=== PATIENT | male | born 1940 | race Caucasian/White ===

== ENCOUNTER → 2016-09-02 | Outpatient (CLI) | payer MEDICARE, OTHER ==
[~2016-09-02] MED LIST: ACTOS15 MG PO; ASPI-84 PO; FLC100T1 PO; FLC1T PO; GABA600T2 PO; GEMF600T3 PO; HYDR-3583 PO; HYDR1TAB PO; LISI20TA2 PO; LOVA20TA2 PO; MTF500T PO; MULT-298 PO; NIA500ERT PO; NYST1000 PO; OMG1KC PO; VITA1CAP59 PO
--- OUTSIDE RECORDS SUMMARY | 2016-09-02 08:00 | XMS REPORT | Continuity of Care Document ---
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 09/18/2010 Ot 112.0 THRUSH 09/18/2010 Ot 250.60 DIAB W NEURO MANIFEST, TYPE II OR UNSPEC 09/18/2010 Ot 272.4 HYPERLIPIDEMIA NEC/NOS 09/18/2010 Ot 276.8 HYPOPOTASSEMIA 09/18/2010 Ot 286.6 DEFIBRINATION SYNDROME 09/18/2010 Ot 357.2 NEUROPATHY IN DIABETES 09/18/2010 Ot 401.9 HYPERTENSION NOS 09/18/2010 Ot 571.5 CIRRHOSIS OF LIVER NOS 09/18/2010 Ot 574.00 CHOLELITH W AC CHOLECYST 09/18/2010 Ot 577.0 ACUTE PANCREATITIS 09/18/2010 Ot 715.90 OSTEOARTHROS NOS-UNSPEC 09/18/2010 Ot 995.92 SEVERE SEPSIS 08/26/2011 Ot 735.4 OTHER HAMMER TOE 05/22/2012 Ot 706.2 SEBACEOUS CYST 05/22/2012 Ot V58.69 OTH MED,LT,CURRENT USE 01/26/2013 JIL TITUS Ot 287.5 THROMBOCYTOPENIA NOS 01/26/2013 JIL TITUS Ot V58.69 OTH MED,LT,CURRENT USE 02/22/2016 Ot 735.4 OTHER HAMMER TOE 02/22/2016 Ot V72.84 EXAM PRE-OPERATIVE NOS 02/22/2016 Ot V74.8 SCREEN-BACTERIAL DIS NEC 02/22/2016 Ot 287.5 THROMBOCYTOPENIA NOS 02/22/2016 Ot 706.2 SEBACEOUS CYST 02/22/2016 Ot V72.81 [id number] CARDIOVASCULAR 02/22/2016 Ot 287.5 THROMBOCYTOPENIA NOS 02/22/2016 Ot 288.51 LYMPHOCYTOPENIA 02/22/2016 Ot 789.2 SPLENOMEGALY 02/22/2016 Ot V58.69 OTH MED,LT,CURRENT USE 02/22/2016 Ot 287.5 THROMBOCYTOPENIA NOS 02/22/2016 FAJARDO MARGO Nika MEDICINE TEACHER Ot 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 02/22/2016 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 MEDICINE TEACHER Ot 287.5 THROMBOCYTOPENIA NOS 02/22/2016 FAJARDO MARGO Maher MEDICINE TEACHER Ot 288.51 LYMPHOCYTOPENIA 02/22/2016 FAJARDO MARGO Maher MEDICINE TEACHER Ot 789.2 SPLENOMEGALY 02/22/2016 FAJARDO MARGO Maher MEDICINE TEACHER Ot V58.69 OTH MED,LT,CURRENT USE 02/22/2016 Ot 287.5 THROMBOCYTOPENIA NOS 02/22/2016 Ot V58.69 OTH MED,LT,CURRENT USE 02/22/2016 ALEX CHAO MD Ot 722.52 LUMB/LUMBOSAC DISC DEGEN 2016 CHAGO ARANGO DO S Ot R01.1 CARDIAC MURMUR, UNSPECIFIED 03/15/2016 CHAGO ARANGO DO S Ot R01.1 CARDIAC MURMUR, UNSPECIFIED 03/22/2016 CHAGO ARANGO DO S Ot R01.1 CARDIAC MURMUR, UNSPECIFIED Procedures Code Description Performed By Performed On 51.85 09/10/2010 50.11 09/14/2010 51.23 09/14/2010 Results Encounters ACCT No. Visit Date/Time Discharge Status Pt. Type Provider Facility Loc./Unit Complaint [id number] 11/11/2013 07:55:00 2013 23:59:59 CLS Outpatient ALEX CHAO MD [facility] RAD LUMBAR STENOSIS [id number] 01/28/2013 08:43:00 2012 23:59:59 CLS Outpatient 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P [facility] ONC [id number] 10/28/2012 10:54:00 2012 00:01:00 DIS Outpatient JIL TITUS [facility] ONC [id number] 02/22/2016 08:53:00 ACT Outpatient CHAGO ARANGO DO [facility] CARD CARDIAC MURMUR [id number] 01/27/2013 00:00:00 Document Registration [id number] 10/14/2012 08:40:00 Document Registration [id number] 09/09/2012 08:41:00 Document Registration [id number] 06/01/2012 14:00:00 Document Registration [id number] 05/22/2012 12:13:00 Document Registration [id number] 05/19/2012 13:58:00 Document Registration [id number] 08/26/2011 05:33:00 Document Registration [id number] 08/19/2011 08:09:00 Document Registration [id number] 09/10/2010 00:08:00 Document Registration
--- NOTE | 2016-09-04 10:01 | ECHOCARDIOGRAPHY REPORT ---
PROCEDURE PHYSICIAN: DELFINO NOVA DATE OF PROCEDURE: 09/02/2016 TWO DIMENSIONAL ECHOCARDIOGRAM REPORT PRIMARY PHYSICIAN: Dr. Major OTHER PHYSICIAN: Dr. Nova REFERRING PHYSICIAN: ORDERING PHYSICIAN: Dr. Major INDICATION FOR THE PROCEDURE: Cardiac murmur. MEASUREMENTS DERIVED VALUES LV DIAMETER (LAX) NORMALS NORMALS Diastolic 5.3 (3.6-5.2) Eject. Fract. (60%+/-6%) Systolic (2.3-3.9) Diastolic Vol. % Shortening (0.22-0.42) Systolic Vol. Aortic Root 3.6 IVS THICKNESS Diastolic 0.7 (0.6-1.1) LVPW THICKNESS Diastolic 0.9 (0.6-1.1) LA DIAMETER Systolic 3.5 (2.1-3.7) DESCRIPTION: Two-dimensional echocardiography shows normal global left ventricular systolic function with normal regional wall motion. Aortic, mitral and tricuspid valve leaflets show good leaflet excursion. There is moderate to moderately severe mitral annular calcification. Mitral valve leaflets show good leaflet excursion. There is moderate aortic valve sclerosis. Aortic valve leaflets exhibit fair leaflet excursion. There is no significant pericardial effusion. There does not appear to be significant valvular regurgitation on this study. Pulmonary artery systolic pressure is estimated to be within normal limits. There is no Doppler evidence of significant valvular stenosis. Mitral inflow is consistent with a grade 1 diastolic dysfunction of the left ventricle. Peak pressure gradient across the aortic valve is approximately 12 mmHg with a mean gradient of approximately 7 mmHg. There is no evidence of significant intracardiac shunt on this transthoracic echocardiographic study. Inferior vena cava appears to be of normal size and appears to collapse normally with inspiration. CONCLUSIONS: 1. Normal global left ventricular systolic function with an ejection fraction of approximately 65%. 2. Mild diastolic dysfunction of the left ventricle. 3. Mitral annular calcification and aortic valve sclerosis, moderate, without evidence of significant valvular stenosis. 4. No evidence of significant valvular regurgitation. 5. Pulmonary artery systolic pressure is estimated to be within normal limits. Job ID: [id number] Dictated Date: 09/03/2016 16:39:42 Employer Relations Representative Date: 09/04/2016 09:55:15 / [email or web address]
== END ==
LOC: CARD 07:56
PROVIDERS: ATTEND Family Medicine
DX: R01.1 Cardiac murmur, unspecified (principal)
CPT/HCPCS: 93306

== ENCOUNTER 2018-08-12 23:52 | Observation (INO) | payer MEDICARE, OTHER ==
[~2018-08-12] VITALS: Ht 175.3 cm; Wt 90.8 kg
--- NOTE | 2018-08-12 23:53 | NUR ---
PT TO ED RM 7 PER EMS S/P NEAR FALL AT HOME. PT REPORTS FEELING WEAK WHILE WALKING ET. LOWERING SELF TO GROUND. PT S/P LEFT HIP REPLACEMENT APPROX. 2WEEKS AGO. PT WITH LEFT LEG SHORTENING. PT REPORTS INTERMITTANT PAIN 5/10 DECLINES PAIN MEDICATION AT THIS TIME. D50 GIVEN BY EMS ADJUNCT FACULTY MATHEMATICS DEPARTMENT FOR FINGER STICK GLUCOSE OF 47, IMPROVING TO 214.
--- OUTSIDE RECORDS SUMMARY | 2018-08-12 23:57 | XMS REPORT | Continuity of Care Document ---
Author Author [facility] Organization [facility] Address Unknown Phone Unavailable Care Team Providers Care School Nurse Name Role Phone CHAGO ARANGO DO PP Insurance Providers Payer Name Policy Number Subscriber Name Relationship s Medicare [id number] Delta Sheikh Self / Same As Patient [facility] [place] [id number] Delta Sheikh Self / Same As Patient Advance Directives Directive Response Recorded Date Advance Directives N 05/22/12 1:00pm Health Care Power of Refractory Products Supervisor N 05/22/12 1:00pm Organ Donor N 05/22/12 1:00pm Problems No Known Problems or Medical conditions. Family History History Response Recorded Date/Time Hx Family Cancer N 09/10/10 12:55am Hx Family Cardiac Disorders Y MOTHER AND FATHER 09/10/10 12:55am Hx Family Stroke Y FATHER 09/10/10 12: 55am Hx Family Hypertension Y 09/10/10 12: 55am Hx Family Myocardial Infarction Y 12:55am Allergies, Adverse Reactions, Alerts Allergen Type Severity Reaction Last Updated No Known Drug Allergies 09/09/10 Medications Medication Dose Units Route Sig Qty Days Acetaminophen/Hydrocodone Bitart (Vicodin 5-500 Tablet) 1 - 2 Each PO Q4HR PRN Niacin (Niaspan) 500 Mg PO DAILY Gemfibrozil 1 Each PO DAILY Aspirin (Macie) 81 Mg PO DAILY Multivitamins/Iron/Folic Acid (Multi Complete-Iron Tablet) 1 Tab PO DAILY Fish Oil 1000 Mg PO DAILY Vitamin B Complex (B Complex) 1 Cap PO DAILY Folic Acid (Folic Acid Tab) 1 Mg PO DAILY Metformin HCl (Metformin 500 Mg) 1000 Mg PO BID Lovastatin 20 Mg PO DAILY Gabapentin (Neurontin) 600 Mg PO DAILY Lisinopril 20 Mg PO DAILY Pioglitazone HCl (Actos) 15 Mg PO DAILY Nystatin (Nystatin Oral Suspension) 0 PO Q6H 7 Fluconazole (Diflucan 100 Mg) 1 Each PO DAILY 7 Acetaminophen/Hydrocodone Bitart (Lortab 5 Mg) 1 - 2 Ea PO Q4HR PRN Response Recorded Date/Time Status not known Unknown Results Test Date Result Interp. Ref. Range Activated Partial Thromboplast Time September 11, 2010 9:04am 39 SEC H 24-35 Alanine Aminotransferase (ALT/SGPT) September 18, 2010 7:18am 47 U/L N 30-65 Albumin September 18, 2010 7:18am 2.7 G/DL L 3.4-5.0 Alkaline Phosphatase September 18, 2010 7:18am 205 U/L H 50-136 Amylase Level September 17, 2010 6:00am 50 U /L N 25-115 Anisocytosis September 10, 2010 9:47am SLIGHT - Anti-Nuclear Antibody Screen September 11, 2010 5:40am <1:80 - Aspartate Amino Transf (AST/SGOT) September 18, 2010 7:18am 54 U/L H 15-37 BUN/Creatinine Ratio September 18, 2010 7:18am 17 - Band Neutrophils September 10, 2010 9:47am 17 % - Basophils # (Auto) September 10, 2010 9:47am 0.0 10^3/uL N 0.0-0.1 Basophils % (Manual) September 10, 2010 9:47am 0 % - Basophils (%) (Auto) September 10, 2010 9:47am 0 % N 0-10 Blood Urea Nitrogen September 18, 2010 7:18am 17 MG/DL N 7-18 Calcium Level September 18, 2010 7:18am 8.3 MG/DL L 8.5-10.1 Carbon Dioxide Level September 18, 2010 7:18am 24 MMOL/L N 21-32 Chloride Level September 18, 2010 7:18am 104 MMOL/L N 101-110 Creatinine September 18, 2010 7:18am 1.0 MG/ DL N 0.6-1.3 Cytomegalovirus IgG Antibody September 11, 2010 5:40am 8.80 H INDEX - Cytomegalovirus IgM Antibody September 11, 2010 5:40am 0.39 INDEX - D-Dimer September 11, 2010 9:04am 3.86 UG/ ML H 0.00-0.49 Dohle Bodies September 10, 2010 9:47am SLIGHT - Eosinophils # (Auto) September 10, 2010 9:47am 0.0 10^3/uL N 0.0-0.3 Eosinophils % (Manual) September 10, 2010 9:47am 0 % - Eosinophils (%) (Auto) September 10, 2010 9:47am 0 % N 0-10 Ariana-Colvin Virus Capsid Ag IgG Ab September 11, 2010 5:40am 4.05 H - Ariana-Colvin Virus Capsid Ag IgM Ab September 11, 2010 5:40am 0.16 - Ariana-Colvin Virus Early Antigen Ab September 11, 2010 5:40am 0.54 - Ariana-Colvni Virus Nuclear Ag Ab September 11, 2010 5:40am 3.93 H - Fibrinogen September 11, 2010 9:04am 612 MG/ DL H 221-496 Glucose Level September 18, 2010 7:18am 150 MG/DL H 70-126 Hematocrit September 18, 2010 7:58am 37 % L 40-54 Hemoglobin September 18, 2010 7:58am 12.5 G/ DL L 13.3-17.7 Hepatitis A IgM Antibody September 14, 2010 7:45am NR - Hepatitis B Core IgM Antibody September 14, 2010 7:45am EQUIVOCAL H - Hepatitis B Surface Antigen September 14, 2010 7:45am NR - Hepatitis C Antibody September 14, 2010 7:45am NR - Lipase September 18, 2010 7:18am 594 U/L H 73-393 Lymphocytes # (Auto) September 10, 2010 9:47am 0.3 X 10^3 L 1.0-4.0 Lymphocytes % (Manual) September 10, 2010 9:47am 5 % - Lymphocytes (%) (Auto) September 10, 2010 9:47am 2 % L 12-44 Macrocytosis September 10, 2010 9:47am SLIGHT - Magnesium Level September 17, 2010 6:00am 2.1 MG/DL N 1.8-2.4 Mean Corpuscular Hemoglobin September 18, 2010 7:58am 32 PG N 25-34 Mean Corpuscular Hemoglobin Concent September 18, 2010 7:58am 34 G/DL N 32-36 Mean Corpuscular Volume September 18, 2010 7:58am 94 FL N 80-99 Mean Platelet Volume September 18, 2010 7:58am 10.5 FL H 7.4-10.4 Metamyelocytes % September 10, 2010 9:47am 1 % - Monocytes # (Auto) September 10, 2010 9:47am 0.6 X 10^3 N 0.0-1.0 Monocytes % (Manual) September 10, 2010 9:47am 3 % - Monocytes (%) (Auto) September 10, 2010 9:47am 5 % N 0-12 Neutrophils # (Auto) September 10, 2010 9:47am 11.1 X 10^3 H 1.8-7.8 Neutrophils % (Manual) September 10, 2010 9:47am 73 % - Neutrophils (%) (Auto) September 10, 2010 9:47am 92 % H 42-75 Phosphorus Level September 12, 2010 5:40am 2.0 MG/DL L 2.5-4.9 Platelet Count September 18, 2010 7:58am 202 10^3/uL N 130-400 Poikilocytosis September 09, 2010 9:00pm SLIGHT - Polychromasia September 09, 2010 9:00pm SLIGHT - Potassium Level September 18, 2010 7:18am 4.3 MMOL/L N 3.6-5.0 Prothromb Time International Ratio September 11, 2010 9:04am 1.3 N 0.8-1.4 Prothrombin Time September 11, 2010 9:04am 16.1 SEC H 12.2-14.7 Reactive Lymphocytes September 10, 2010 9:47am 1 % - Red Blood Count September 18, 2010 7:58am 3.96 10^6/uL L 4.35-5.85 Red Cell Distribution Width September 18, 2010 7:58am 13.6 % N 10.0-14.5 Sodium Level September 18, 2010 7:18am 137 MMOL/L N 135-145 Total Bilirubin September 18, 2010 7:18am 0.8 MG/DL N 0.0-1.0 Total Protein September 18, 2010 7:18am 5.8 G/DL L 6.4-8.2 Toxic Granulation September 10, 2010 9:47am 1+ - Urine Bacteria September 09, 2010 9:15pm NEGATIVE - Urine Bilirubin September 09, 2010 9:15pm NEGATIVE - Urine Casts September 09, 2010 9:15pm NONE - Urine Clarity September 09, 2010 9:15pm CLEAR - Urine Color September 09, 2010 9:15pm YELLOW - Urine Crystals September 09, 2010 9:15pm NONE - Urine Culture Indicated September 09, 2010 9:15pm NO - Urine Glucose (UA) September 09, 2010 9:15pm TRACE H - Urine Ketones September 09, 2010 9:15pm NEGATIVE - Urine Leukocyte Esterase September 09, 2010 9:15pm NEGATIVE - Urine Mucus September 09, 2010 9:15pm NEGATIVE - Urine Nitrite September 09, 2010 9:15pm NEGATIVE - Urine Protein September 09, 2010 9:15pm NEGATIVE - Urine RBC September 09, 2010 9:15pm NONE /HPF - Urine Specific Baskin September 09, 2010 9:15pm 1.015 L - Urine Squamous Epithelial Cells September 09, 2010 9:15pm RARE - Urine Urobilinogen September 09, 2010 9:15pm 8 MG/DL H - Urine WBC September 09, 2010 9:15pm RARE /HPF - Urine pH September 09, 2010 9:15pm 8.0 - Vancomycin Level Trough September 15, 2010 7:55pm 3 UG/ML L 15-20 White Blood Count September 18, 2010 7:58am 5.9 10^3/uL N 4.3-11.0 Glucometer May 22, 2012 3:42pm 129 MG/DL H 70-110 Estimat Glomerular Filtration Rate September 09, 2010 9:00pm 60 - Urine RBC (Auto) September 09, 2010 9:15pm NEGATIVE - Procedures Procedure Code Date LESION REMOVE COLONOSCOPY 15025 06/29/07 LAPAROSCOPIC CHOLECYSTECTOMY 51.23 PERCUTAN NEEDLE BX OF LIVER 50.11 ENDOSCOPIC SPHINCTEROTOMY AND PAPILLOTOMY 51.85 09/10/10 REPAIR OF HAMMERTOE 29431 08/26/11 INCISION OF METATARSAL 73849 08/26/11 EXC TR-EXT B9+FELIX >4.0 CM [address] Blood Culture 09/09/10 MRSA Screen 05/22/12 Gram Stain 09/14/10 Encounters Encounter Location Date/Time Discharged Inpatient [facility] 12:08am
[2018-08-12] MEDS ORDERED: NS IV 1000 ML 1,000 ML IV SCH (23:58)
--- OUTSIDE RECORDS SUMMARY | 2018-08-12 23:58 | XMS REPORT | Continuity of Care Document ---
Author Author [facility] Organization [facility] Address Unknown Phone Unavailable Allergies Active Description Code Type Severity Reaction Onset Reported/Identified Relationship to Patient Clinical Status Yes No Known Drug Allergies [id number] Drug Allergy Unknown N/A 09/09/2010 Medications There is no data. Problems Date Dx Coded Attending Type Code [...] 706.2 SEBACEOUS CYST 05/22/2012 Ot V58.69 OTH MED,LT, CURRENT USE 01/26/2013 JIL TITUS Ot 287.5 THROMBOCYTOPENIA NOS 01/26/2013 JIL TITUS Ot V58.69 OTH MED,LT,CURRENT USE 02/22/2016 Ot 735.4 OTHER HAMMER TOE 02/22/2016 Ot V72.84 EXAM PRE- OPERATIVE NOS 02/22/2016 Ot V74.8 SCREEN- BACTERIAL DIS NEC 02/22/2016 Ot 287.5 THROMBOCYTOPENIA NOS 02/22/2016 Ot 706.2 SEBACEOUS CYST 02/22/2016 Ot V72.81 EXAM-PRE- OPERATIVE CARDIOVASCULAR 02/22/2016 Ot 287.5 THROMBOCYTOPENIA NOS 02/22/2016 Ot 288.51 LYMPHOCYTOPENIA 02/22/2016 Ot 789.2 SPLENOMEGALY 02/22/2016 Ot V58.69 OTH MED,LT, CURRENT USE 02/22/2016 Ot 287.5 THROMBOCYTOPENIA NOS 02/22/2016 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 SENIOR QUANTITY SURVEYOR Ot 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 02/22/2016 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 SENIOR QUANTITY SURVEYOR Ot 287.5 THROMBOCYTOPENIA NOS 02/22/2016 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 SENIOR QUANTITY SURVEYOR Ot 288.51 LYMPHOCYTOPENIA 02/22/2016 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 SENIOR QUANTITY SURVEYOR Ot 789.2 SPLENOMEGALY 02/22/2016 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 SENIOR QUANTITY SURVEYOR Ot V58.69 OTH MED,LT,CURRENT USE 02/22/2016 Ot 287.5 THROMBOCYTOPENIA NOS 02/22/2016 Ot V58.69 OTH MED,LT, CURRENT USE 02/22/2016 JEREMIE RICE, ALEX Morales Ot 722.52 LUMB/LUMBOSAC DISC DEGEN 2016 HUGO MAJOR DOLINE S Ot R01.1 CARDIAC MURMUR, UNSPECIFIED 03/15/2016 HUGO MAJOR DOLINE S Ot R01.1 CARDIAC MURMUR, UNSPECIFIED 03/22/2016 HOLLISNDHUGO LONG DOLINE S Ot R01.1 CARDIAC MURMUR, UNSPECIFIED 09/02/2016 Ot 735.4 OTHER HAMMER TOE 09/02/2016 Ot V72.84 EXAM PRE- OPERATIVE NOS 09/02/2016 Ot V74.8 SCREEN- BACTERIAL DIS NEC 09/02/2016 Ot 287.5 THROMBOCYTOPENIA NOS 09/02/2016 Ot 706.2 SEBACEOUS CYST 09/02/2016 Ot V72.81 EXAM-PRE- OPERATIVE CARDIOVASCULAR 09/02/2016 Ot 287.5 THROMBOCYTOPENIA NOS 09/02/2016 Ot 288.51 LYMPHOCYTOPENIA 09/02/2016 Ot 789.2 SPLENOMEGALY 09/02/2016 Ot V58.69 OTH MED,LT, CURRENT USE 09/02/2016 Ot 287.5 THROMBOCYTOPENIA NOS 09/02/2016 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 SENIOR QUANTITY SURVEYOR Ot 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 09/02/2016 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 SENIOR QUANTITY SURVEYOR Ot 287.5 THROMBOCYTOPENIA NOS 09/02/2016 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 SENIOR QUANTITY SURVEYOR Ot 288.51 LYMPHOCYTOPENIA 09/02/2016 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 SENIOR QUANTITY SURVEYOR Ot 789.2 SPLENOMEGALY 09/02/2016 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 SENIOR QUANTITY SURVEYOR Ot V58.69 OTH MED,LT,CURRENT USE 09/02/2016 Ot 287.5 THROMBOCYTOPENIA NOS 09/02/2016 Ot V58.69 OTH MED,LT, CURRENT USE 09/02/2016 JEREMIE RICE, ALEX Morales Ot 722.52 LUMB/LUMBOSAC DISC DEGEN 09/02/2016 ORENDER DO, CHAGO S Ot R01.1 CARDIAC MURMUR, UNSPECIFIED 09/05/2016 ORENDER DO, CHAGO S Ot R01.1 CARDIAC MURMUR, UNSPECIFIED 09/08/2016 ORENDER DO, CHAGO S Ot R01.1 CARDIAC MURMUR, UNSPECIFIED 09/24/2016 ORENDER DO, CHAGO S Ot R01.1 CARDIAC MURMUR, UNSPECIFIED 09/27/2016 ORENDER DO, CHAGO S Ot R01.1 CARDIAC MURMUR, UNSPECIFIED 08/12/2018 JEREMIE RICE, ALEX Morales Ot 722.52 LUMB/LUMBOSAC DISC DEGEN 08/12/2018 ORENDER DO, CHAGO S Ot R01.1 CARDIAC MURMUR, UNSPECIFIED 08/12/2018 ORENDER DO, CHAGO S Ot R01.1 CARDIAC MURMUR, UNSPECIFIED Procedures Code Description Performed By Performed On 51.85 09/10/2010 50.11 09/14/2010 51.23 09/14/2010 Results There is no data. Encounters ACCT No. Visit Date/Time Discharge Status Pt. Type Provider Facility Loc./Unit Complaint [id number] 09/02/2016 07:56:00 09/02/2016 23:59:59 CLS Outpatient ORENDER DO, CHAGO S [facility] CARD CARDIAC MURMUR [id number] 02/22/2016 08:53:00 02/22/2016 23:59:59 CLS Outpatient ORENDER DO, CHAGO S [facility] CARD CARDIAC MURMUR [id number] 11/11/2013 07:55:00 11/11/2013 23:59:59 CLS Outpatient ALEX CHAO MD [facility] RAD LUMBAR STENOSIS [id number] 01/28/2013 08:43:00 01/28/2013 23:59:59 CLS Outpatient 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 [facility] ONC [id number] 10/28/2012 10:54:00 01/26/2013 00:01:00 DIS Outpatient JIL TITUS [facility] ONC [id number] 08/12/2018 23:54:00 ACT Emergency GEMA RICE, CASTRO Osborne [facility] ER FALL [id number] 01/27/2013 00:00:00 Document Registration [id number] 10/14/2012 08:40:00 Document Registration [id number] 09/09/2012 08:41:00 Document Registration [id number] 06/01/2012 14:00:00 Document Registration [id number] 05/22/2012 12:13:00 Document Registration [id number] 05/19/2012 13:58:00 Document Registration [id number] 08/26/2011 05:33:00 Document Registration [id number] 08/19/2011 08:09:00 Document Registration [id number] 09/10/2010 00:08:00 Document Registration 02/23/18 07/28/2018 00:00:12 07/28/2018 23:59:59 CLS Outpatient Chago Major
[2018-08-13] VITALS (7 sets, daily range): BP systolic 101–149; BP diastolic 57–65
--- NOTE | 2018-08-13 00:05 | ED Hip Pain/Injury ---
General Chief Complaint: Hip/Pelvic Problems Stated Complaint: FALL Source: patient, EMS Exam Limitations: no limitations History of Present Illness Date Seen by Provider: Aug 13, 2018 Time Seen by Provider: 23:51 Initial Comments The patient presents to ER by EMS with chief complaint that he was walking through his home when he did not feel well like he couldn't move on any further and so he grabbed on the couch and lowered himself to the ground. After that he started having some pain and shortening in his left hip and it had previously 2 weeks ago had a left hip replacement done. He just saw his orthopedic surgeon in the last day and was told everything looked good. He now has quite a bit of pain with movement of his left hip or walking. Laying still does not have pain. He has not taken anything for pain. Does not want anything at this time rates it as about a 1 out of 10. EMS reports his blood sugar was 46 when they arrived so they gave him an amp of D50 and afterwards it was 200+. He is on metformin only for his diabetes. He is not on blood thinners. Allergies and Home Medications Allergies Coded Allergies: No Known Drug Allergies (Unverified , 09/09/10) Home Medications Aspirin 81 Mg Tablet.dr, 81 MG PO DAILY, (Reported) Folic Acid 1 Mg Tab, 1 MG PO DAILY, (Reported) Gabapentin 600 Mg Tablet, 600 MG PO DAILY, (Reported) Gemfibrozil 600 Mg Tablet, 1 EACH PO DAILY, (Reported) Hydrocodone Bit/Acetaminophen 1 Each Tablet, 1-2 EACH PO Q4HR PRN, (Reported) Lisinopril 20 Mg Tablet, 20 MG PO DAILY, (Reported) Lovastatin 20 Mg Tablet, 20 MG PO DAILY, (Reported) Metformin Hcl 500 Mg Tablet, 1,000 MG PO BID, (Reported) Multivitamins/Iron/Folic Acid 1 Each Tablet, 1 TAB PO DAILY, (Reported) Niacin 500 Mg Tablet.sa, 500 MG PO DAILY, (Reported) Maxie 3 Polyunsat Fatty Acids 1,000 Mg Cap, 1,000 MG PO DAILY, (Reported) Vitamin B Complex 1 Cap Capsule, 1 CAP PO DAILY, (Reported) Patient Home Medication List Home Medication List Reviewed: Yes Review of Systems Constitutional: No chills, No malaise EENTM: No hearing loss, No ear pain Respiratory: No cough, No short of breath Cardiovascular: No chest pain, No edema Gastrointestinal: No abdominal pain, No constipation, No diarrhea, No nausea Genitourinary: No discharge, No dysuria Musculoskeletal: see HPI, joint pain Past Pwvbkaq-Gcdtvq-Ugsarh Hx Patient Social History Alcohol Use: Denies Use Smoking Status: Never a Smoker Recent Foreign Travel: No Contact w/Someone Who Travel: No Past Medical History Reproductive Disorders: No Physical Exam Vital Signs Vital Signs - First Documented 08/12/18 08/13/18 23:53 00:25 Temp 96.5 Pulse 103 Resp 18 B/P (MAP) 136/91 (106) Pulse Ox 100 O2 Delivery Room Air O2 Flow Rate 2.00 Capillary Refill : Height, Weight, BMI Height: '" Weight: lbs. oz. kg; BMI Method:Stated General Appearance: No Apparent Distress, WD/WN HEENT: PERRL/EOMI, Normal ENT Inspection, Pharynx Normal, Moist Mucous Membranes Neck: Full Range of Motion, Normal Inspection Cardiovascular: Regular Rate, Rhythm, No Edema, Normal Peripheral Pulses Respiratory: Chest Non Tender, Lungs Clear, Normal Breath Sounds Peripheral Pulses: 2+ Dorsalis Pedis (R), 2+ Left Dors-Pedis (L) Gastrointestinal: Normal Bowel Sounds, Non Tender, Soft Extremity: Normal Capillary Refill, No Pedal Edema, Other (Left leg is shortened with some tenderness over the greater trochanter) Neurologic/Psychiatric: Alert, Oriented x3, No Motor/Sensory Deficits, Normal Mood/Affect, 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 Ack. Understanding Agreement on procedure with pt: Yes Patient History: Heavy Snoring Breath Sounds per Auscultation: Clear Heart Sounds per Auscultation: Regular Airway Exam: Mouth opens >2 fingers, Neck Full Range of Motion, Visulation of Uvula Sedation Adminstration Time: 00:35 Total Time spent in CS 30 mins After the risks, benefits and alternatives were explained the patient we gave him 50 mg of fentanyl for his 5 out of 10 pain in his left hip and 3 of Versed. This helped him get to a peaceful sleeping state that he was still able to answer questions. We then started a slow push the ketamine over 5 minutes. He did have an area of desaturation down to 78% for approximately less than 1 minute and after we re-positioned his jaw is allowed him to breathe easier. We then put a oropharyngeal airway and which kept his oxygen saturation in the 98- 100%. His end-tidal CO2 monitor was around 32-37. Respiratory was present as well as nursing staff. When the patient was sedate he then placed wreck pressure over the ASIS bilaterally and the Provider grasp the left leg under the knee and getting gentle traction felt the ball of the femur slide back into the socket of the hip. 1 view x-ray was obtained showing good position with no fracture or dislocation of the prostheses. We will then recover the patient and he slowly regained consciousness and the oropharyngeal airway was removed. He was off all oxygen for over 5 minutes maintaining oxygenation sat 97-100% on room air. He is answering questions and asking questions. His was updated on the situation. Re-examination Time: 01:22 Re-examination Patient is resting comfortably with no pain and good range of motion of his left hip. Progress/Results/Core Measures Results/Orders Lab Results Laboratory Tests Test 08/12/18 00:00 08/13/18 00:40 08/13/18 00:54 Range/Units White Blood Count 3.5 L 4.3-11.0 10^3/uL Red Blood Count 3.23 L 4.35-5.85 10^6/uL Hemoglobin 10.0 L 13.3-17.7 G/DL Hematocrit 31 L 40-54 % Mean Corpuscular Volume 96 80-99 FL Mean Corpuscular Hemoglobin 31 25-34 PG Mean Corpuscular Hemoglobin Concent 32 32-36 G/DL Red Cell Distribution Width 13.8 10.0-14.5 % Platelet Count 169 130-400 10^3/uL Mean Platelet Volume 10.1 7.4-10.4 FL Neutrophils (%) (Auto) 65 42-75 % Lymphocytes (%) (Auto) 21 12-44 % Monocytes (%) (Auto) 11 0-12 % Eosinophils (%) (Auto) 3 0-10 % Basophils (%) (Auto) 0 0-10 % Neutrophils # (Auto) 2.3 1.8-7.8 X 10^3 Lymphocytes # (Auto) 0.7 L 1.0-4.0 X 10^3 Monocytes # (Auto) 0.4 0.0-1.0 X 10^3 Eosinophils # (Auto) 0.1 0.0-0.3 10^3/uL Basophils # (Auto) 0.0 0.0-0.1 10^3/uL Prothrombin Time 13.7 12.2-14.7 SEC INR Comment 1.1 0.8-1.4 Activated Partial Thromboplast Time 28 24-35 SEC Sodium Level 136 135-145 MMOL/L Potassium Level 4.2 3.6-5.0 MMOL/L Chloride Level 102 98-107 MMOL/L Carbon Dioxide Level 24 21-32 MMOL/L Anion Gap 10 5-14 MMOL/L Blood Urea Nitrogen 24 H 7-18 MG/DL Creatinine 1.11 0.60-1.30 MG/DL Estimat Glomerular Filtration Rate > 60 BUN/Creatinine Ratio 22 Glucose Level 193 H 70-105 MG/DL Lactic Acid Level 2.13 *H 0.50-2.00 MMOL/L Calcium Level 8.7 8.5-10.1 MG/DL Corrected Calcium 9.0 8.5-10.1 MG/DL Total Bilirubin 0.6 0.1-1.0 MG/DL Aspartate Amino Transf (AST/SGOT) 43 H 5-34 U/L Alanine Aminotransferase (ALT/SGPT) 27 0-55 U/L Alkaline Phosphatase 213 H 40-136 U/L Total Protein 6.4 6.4-8.2 GM/DL Albumin 3.6 3.2-4.5 GM/DL Glucometer 126 H 70-110 MG/DL Urine Color YELLOW Urine Clarity CLEAR Urine pH 5 5-9 Urine Specific [place] 1.020 1.016-1.022 Urine Protein 1+ H NEGATIVE Urine Glucose (UA) 2+ H NEGATIVE Urine Ketones NEGATIVE NEGATIVE Urine Nitrite NEGATIVE NEGATIVE Urine Bilirubin NEGATIVE NEGATIVE Urine Urobilinogen NORMAL NORMAL MG/DL Urine Leukocyte Esterase NEGATIVE NEGATIVE Urine RBC (Auto) NEGATIVE NEGATIVE Urine RBC NONE /HPF Urine WBC NONE /HPF Urine Squamous Epithelial Cells RARE /HPF Urine Crystals NONE /LPF Urine Bacteria TRACE /HPF Urine Casts NONE /LPF Urine Mucus NEGATIVE /LPF Urine Culture Indicated CULTURE PENDING My Orders Orders - CASTRO RIBEIRO Cbc With Automated Diff (08/12/18 23:58) Comprehensive Metabolic Panel (08/12/18 23:58) Blood Culture (08/12/18 23:58) Sputum Culture (08/12/18 23:58) Urinalysis (08/12/18 23:58) Urine Culture (08/12/18 23:58) Protime With Inr (08/12/18 23:58) Partial Thromboplastin Time (08/12/18 23:58) Saline Lock/Iv-Start (08/12/18 23:58) Saline Lock/Iv-Start (08/12/18 23:58) Vital Signs Adult Sepsis Patie Q15M (08/12/18 23:58) O2 (08/12/18 23:58) Remove Rings In Anticipation O (08/12/18 23:58) Lactic Acid Analyzer (08/12/18 23:58) Ns Iv 1000 Ml (Sodium Chloride 0.9%) (08/12/18 23:58) Chest 1 View, Ap/Pa Only (08/13/18 00:05) Pelvis With Left Hip 2-3 Views (08/13/18 00:05) Fentanyl Injection (Sublimaze Injection (08/13/18 00:15) Ketamine Injection (Ketalar Injection) (08/13/18 00:15) Midazolam Injection (Versed Injection) (08/13/18 00:15) Accucheck Stat ONCE (08/13/18 00:46) Hip, Left (Single View) (08/13/18 00:51) Medications Given in ED Current Medications Medications Dose Ordered Sig/Gabe Route Start Time Stop Time Status Last Admin Dose Admin Fentanyl Citrate 50 mcg ONCE ONCE IVP 08/13/18 00:15 08/13/18 00:20 DC 08/13/18 00:26 50 MCG Ketamine HCl 90 mg ONCE ONCE IV 08/13/18 00:15 08/13/18 00:20 DC 08/13/18 00:26 90 MG Midazolam HCl 3 mg ONCE ONCE IVP 08/13/18 00:15 08/13/18 00:20 DC 08/13/18 00:26 3 MG Vital Signs/I&O 08/12/18 08/13/18 08/13/18 08/13/18 23:53 00:25 00:35 00:40 Temp 96.5 96.4 Pulse 103 109 Resp 18 14 14 B/P (MAP) 136/91 (106) 154/80 Pulse Ox 100 93 O2 Delivery Room Air Nasal Cannula Nasal Cannula Nasal Cannula O2 Flow Rate 2.00 2.00 2.00 08/13/18 08/13/18 08/13/18 00:45 00:55 01:05 Pulse 112 101 94 Resp 19 13 12 B/P (MAP) 171/89 136/71 135/67 Pulse Ox 100 100 98 O2 Delivery Simple Mask Simple Mask Room Air O2 Flow Rate 10.00 6.00 Progress Progress Note #1: Time: 00:05 Progress Note Patient is declining any pain meds at this time. We'll get an x-ray of his pelvis and hip. Dislocated versus fractured. We'll get blood and urine looking for a source of why he is hypoglycemic. Chest x-ray blood cultures urinalysis. Progress Note #2: Time: 01:24 Progress Note No source for infection yet however the blood urea nitrogen and lactate are both elevated. Return a call this hyperglycemia and dehydration and dislocation of the left hip. We'll get a flu swab. Diagnostic Imaging Diagonstic Imaging: Xray Plain Films/CT/US/NM/MRI: chest (one view) Comments No acute osseous abnormalities. Reviewed: Reviewed by Me Diagonstic Imaging: Xray Plain Films/CT/US/NM/MRI: pelvis, hip (left) Comments Left hip prostheses in good position in relation to the left femur. No acute fracture seen. The left hip prostheses and ball are dislocated. Reviewed: Reviewed by Me Diagonstic Imaging: Xray Plain Films/CT/US/NM/MRI: hip (left 1 view) Comments No acute fracture. Hip appears to be back in location appropriately. Reviewed: Reviewed by Me Departure Communication (Admissions) Time/Spoke to Admitting Phy: 01:25 Discussed the case lab imaging findings with Dr. Haro she agrees to observe the patient for the hyperglycemia. Impression Primary Impression: Dislocated hip Qualified Codes: S73.005A - Unspecified dislocation of left hip, initial encounter Additional Impression: Hypoglycemia Disposition: 09 ADMITTED INPATIENT Condition: Stable Admissions Decision to Admit Reason: Admit from ER (General) Decision to Admit/Date: Aug 13, 2018 Time/Decision to Admit Time: 01:26 Departure-Patient Inst. Referrals: CHAGO ARANGO DO (PCP/Family) Primary Care Physician CASTRO RIBEIRO Aug 13, 2018 00:05
[2018-08-13 00:07] LABS: BASOPHILS % (AUTO) 0 % (0-10); EOSINOPHILS # (AUTO) 0.1 10^3/uL (0.0-0.3); EOSINOPHILS % (AUTO) 3 % (0-10); HEMATOCRIT 31 % (40-54); LYMPHOCYTES # (AUTO) 0.7 X 10^3 (1.0-4.0); LYMPHOCYTES % (AUTO) 21 % (12-44); MEAN CORPUSCULAR HEMOGLOBIN 31 PG (25-34); MEAN CORPUSCULAR HGB CONC 32 G/DL (32-36); MEAN CORPUSCULAR VOLUME 96 FL (80-99); MEAN PLATELET VOLUME 10.1 FL (7.4-10.4); MONOCYTES # (AUTO) 0.4 X 10^3 (0.0-1.0); MONOCYTES % (AUTO) 11 % (0-12); NEUTROPHILS # (AUTO) 2.3 X 10^3 (1.8-7.8); NEUTROPHILS % (AUTO) 65 % (42-75); PLATELET COUNT 169 10^3/uL (130-400); RED CELL DISTRIBUTION WIDTH 13.8 % (10.0-14.5); WHITE BLOOD COUNT 3.5 10^3/uL (4.3-11.0)
[2018-08-13] MEDS ORDERED: MIDAZOLAM 2 MG/2 ML (VERSED) VIAL IVP ONE (00:15)
[2018-08-13] MEDS ORDERED: fentaNYL INJECTION 100 MCG/2 ML AMP IVP ONE (00:15)
[2018-08-13] MEDS ORDERED: KETAMINE HCL 100 MG/ML 5 ML VIAL IV ONE (00:15)
[2018-08-13 00:19] LABS: INR 1.1 (0.8-1.4); PROTHROMBIN TIME PATIENT 13.7 SEC (12.2-14.7)
[2018-08-13 00:29] LABS: ALANINE AMINOTRANSFERASE 27 U/L (0-55); ALBUMIN 3.6 GM/DL (3.2-4.5); ALKALINE PHOSPHATASE 213 U/L (40-136); BILIRUBIN,TOTAL 0.6 MG/DL (0.1-1.0); BUN/CREATININE RATIO 22; CALCIUM 8.7 MG/DL (8.5-10.1); CARBON DIOXIDE 24 MMOL/L (21-32); CHLORIDE 102 MMOL/L (98-107); CREATININE SERUM 1.11 MG/DL (0.60-1.30); GFR ESTIMATED > 60; GLUCOSE 193 MG/DL (70-105); POTASSIUM 4.2 MMOL/L (3.6-5.0); SODIUM 136 MMOL/L (135-145); TOTAL PROTEIN 6.4 GM/DL (6.4-8.2)
[2018-08-13 01:03] LABS: BILIRUBIN,URINE NEGATIVE (NEGATIVE); CLARITY,URINE CLEAR; COLOR,URINE YELLOW; GLUCOSE, URINE (UA) 2+ (NEGATIVE); KETONES,URINE NEGATIVE (NEGATIVE); LEUKOCYTE ESTERASE ,URINE NEGATIVE (NEGATIVE); NITRITE,URINE NEGATIVE (NEGATIVE); PH,URINE 5 (5-9); PROTEIN,URINE 1+ (NEGATIVE); UROBILINOGEN,URINE NORMAL (NORMAL)
[2018-08-13 01:11] LABS: BACTERIA,URINE TRACE /HPF; SQUAMOUS EPITHELIAL CELL,UR RARE /HPF
--- NOTE | 2018-08-13 02:00 | NUR ---
Pt refuses flu vaccine
--- NOTE | 2018-08-13 02:00 | NUR ---
Quinn Sheikh admitted to room 420, with an admitting diagnosis of hypoglycemia , left hip dislocation on 08/13/18 from ED via WHEELCHAIR, accompanied by .QUINN SHEIKH introduced to surroundings, call light, bed controls, phone, TV, temperature control, lights, meal times, smoking policy, visitor policy, side rail policy, bathrooms and showers. Patient Rights given to patient in the handbook.QUINN SHEIKH verbalizes understanding that [facility] is not responsible for the loss or damage to any personal effects or valuables that are kept in the patients posession during their hospitalization. The Patient Care Plans were discussed with the pt .
--- OUTSIDE RECORDS SUMMARY | 2018-08-13 02:35 | XMS REPORT | Continuity of Care Document ---
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 02/22/2016 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 Ot 287.5 THROMBOCYTOPENIA NOS 02/22/2016 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 Ot 288.51 LYMPHOCYTOPENIA 02/22/2016 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 Ot 789.2 SPLENOMEGALY 02/22/2016 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 Ot V58.69 OTH MED,LT,CURRENT USE 02/22/2016 Ot 287.5 THROMBOCYTOPENIA NOS 02/22/2016 Ot V58.69 OTH MED,LT, CURRENT USE 02/22/2016 JEREMIE RICE, ALEX Morales Ot 722.52 LUMB/LUMBOSAC DISC DEGEN 2016 HUGO ARANGO DOLINE S Ot R01.1 CARDIAC MURMUR, UNSPECIFIED 03/15/2016 HUGO ARANGO DOLINE S Ot R01.1 CARDIAC MURMUR, UNSPECIFIED [...] Ot 287.5 THROMBOCYTOPENIA NOS 09/02/2016 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 Ot 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 09/02/2016 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 Ot 287.5 THROMBOCYTOPENIA NOS 09/02/2016 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 Ot 288.51 LYMPHOCYTOPENIA 09/02/2016 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 Ot 789.2 SPLENOMEGALY 09/02/2016 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 Ot V58.69 OTH MED,LT,CURRENT USE 09/02/2016 Ot [...] CHAGO S Ot R01.1 CARDIAC MURMUR, UNSPECIFIED 08/13/2018 JEREMIE RICE, ALEX Morales Ot 722.52 LUMB/LUMBOSAC DISC DEGEN 08/13/2018 ORENDER DO, CHAGO S Ot R01.1 CARDIAC MURMUR, UNSPECIFIED 08/13/2018 ORENDER DO, CHAGO S Ot R01.1 CARDIAC MURMUR, UNSPECIFIED Procedures Code Description Performed By Performed On 51.85 09/10/2010 50.11 09/14/2010 51.23 09/14/2010 Results Test Result Range Complete blood count (CBC) with automated white blood cell (WBC) differential - 08/12/18 00:00 Blood leukocytes automated count (number/volume) 3.5 10*3/uL 4.3-11.0 Blood erythrocytes automated count (number/volume) 3.23 10*6/uL 4.35-5.85 Venous blood hemoglobin measurement (mass/volume) 10.0 g/dL 13.3-17.7 Blood hematocrit (volume fraction) 31 % 40-54 Automated erythrocyte mean corpuscular volume 96 [foz_us] 80-99 Automated erythrocyte mean corpuscular hemoglobin (mass per erythrocyte) 31 pg 25-34 Automated erythrocyte mean corpuscular hemoglobin concentration measurement ( mass/volume) 32 g/dL 32-36 Automated erythrocyte distribution width ratio 13.8 % 10.0-14.5 Automated blood platelet count (count/volume) 169 10*3/uL 130-400 Automated blood platelet mean volume measurement 10.1 [foz_us] 7.4-10.4 Automated blood neutrophils/100 leukocytes 65 % 42-75 Automated blood lymphocytes/100 leukocytes 21 % 12-44 Blood monocytes/100 leukocytes 11 % 0-12 Automated blood eosinophils/100 leukocytes 3 % 0-10 Automated blood basophils/100 leukocytes 0 % 0-10 Blood neutrophils automated count (number/volume) 2.3 10*3 1.8-7.8 Blood lymphocytes automated count (number/volume) 0.7 10*3 1.0-4.0 Blood monocytes automated count (number/volume) 0.4 10*3 0.0-1.0 Automated eosinophil count 0.1 10*3/uL 0.0-0.3 Automated blood basophil count (count/volume) 0.0 10*3/uL 0.0-0.1 PT panel in platelet poor plasma by coagulation assay - 08/12/18 00:00 Prothrombin time (PT) in platelet poor plasma by coagulation assay 13.7 s 12.2-14.7 INR in platelet poor plasma or blood by coagulation assay 1.1 0.8-1.4 Activated partial thromboplastin time (aPTT) in platelet poor plasma bycoagulation assay - 08/12/18 00:00 Activated partial thromboplastin time (aPTT) in platelet poor plasma bycoagulation assay 28 s 24-35 Blood lactic acid measurement (moles/volume) - 08/12/18 00:00 Blood lactic acid measurement (moles/volume) 2.13 mmol/L 0.50-2.00 Comprehensive metabolic panel - 08/12/18 00:00 Serum or plasma sodium measurement (moles/volume) 136 mmol/L 135-145 Serum or plasma potassium measurement (moles/volume) 4.2 mmol/L 3.6-5.0 Serum or plasma chloride measurement (moles/volume) 102 mmol/L 98-107 Carbon dioxide 24 mmol/L 21-32 Serum or plasma anion gap determination (moles/volume) 10 mmol/L 5-14 Serum or plasma urea nitrogen measurement (mass/volume) 24 mg/dL 7-18 Serum or plasma creatinine measurement (mass/volume) 1.11 mg/dL 0.60-1.30 Serum or plasma urea nitrogen/creatinine mass ratio 22 NRG Serum or plasma creatinine measurement with calculation of estimated glomerular filtration rate > NRG Serum or plasma glucose measurement (mass/volume) 193 mg/dL 70-105 Serum or plasma calcium measurement (mass/volume) 8.7 mg/dL 8.5-10.1 Serum or plasma total bilirubin measurement (mass/volume) 0.6 mg/dL 0.1-1.0 Serum or plasma alkaline phosphatase measurement (enzymatic activity/volume) 213 U/L 40-136 Serum or plasma aspartate aminotransferase measurement (enzymatic activity/ volume) 43 U/L 5-34 Serum or plasma alanine aminotransferase measurement (enzymatic activity/volume ) 27 U/L 0-55 Serum or plasma protein measurement (mass/volume) 6.4 g/dL 6.4-8.2 Serum or plasma albumin measurement (mass/volume) 3.6 g/dL 3.2-4.5 CALCIUM CORRECTED 9.0 mg/dL 8.5-10.1 Capillary blood glucose measurement by glucometer (mass/volume) - 08/13/18 00: 40 Capillary blood glucose measurement by glucometer (mass/volume) 126 mg/dL 70-110 Complete urinalysis with reflex to culture - 08/13/18 00:54 Urine color determination YELLOW NRG Urine clarity determination CLEAR NRG Urine pH measurement by test strip 5 5-9 Specific gravity of urine by test strip 1.020 1.016- 1.022 Urine protein assay by test strip, semi-quantitative 1+ NEGATIVE Urine glucose detection by automated test strip 2+ NEGATIVE Erythrocytes detection in urine sediment by light microscopy NEGATIVE NEGATIVE Urine ketones detection by automated test strip NEGATIVE NEGATIVE Urine nitrite detection by test strip NEGATIVE NEGATIVE Urine total bilirubin detection by test strip NEGATIVE NEGATIVE Urine urobilinogen measurement by automated test strip (mass/volume) NORMAL NORMAL Urine leukocyte esterase detection by dipstick NEGATIVE NEGATIVE Automated urine sediment erythrocyte count by microscopy (number/high power field) NONE NRG Automated urine sediment leukocyte count by microscopy (number/high power field ) NONE NRG Bacteria detection in urine sediment by light microscopy TRACE NRG Squamous epithelial cells detection in urine sediment by light microscopy RARE NRG Crystals detection in urine sediment by light microscopy NONE NRG Casts detection in urine sediment by light microscopy NONE NRG Mucus detection in urine sediment by light microscopy NEGATIVE NRG Complete urinalysis with reflex to culture CULTURE PENDING NRG Encounters ACCT No. Visit Date/Time Discharge Status Pt. Type Provider Facility Loc./Unit Complaint [id number] 09/02/2016 07:56:00 09/02/2016 23:59:59 CLS Outpatient ERICAER HUGO VILLANUEVALINE S [facility] CARD CARDIAC MURMUR [id number] 02/22/2016 08:53:00 02/22/2016 23:59:59 CLS Outpatient HUGO ARANGO DOLINE S [facility] CARD CARDIAC MURMUR [id number] 11/11/2013 07:55:00 11/11/2013 23:59:59 CLS Outpatient ALEX CHAO MD [facility] RAD LUMBAR STENOSIS [id number] 01/28/2013 08:43:00 01/28/2013 23:59:59 CLS Outpatient 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 [facility] ONC [id number] 10/28/2012 10:54:00 01/26/2013 00:01:00 DIS Outpatient JIL TITUS [facility] ONC [id number] 08/13/2018 01:30:00 ACT Inpatient CHAGO ARANGO DO S [facility] 4TH HYPOGLYCEMIA,L HIP DISLOCATION [id number] 01/27/2013 00:00:00 Document Registration [id number] 10/14/2012 08:40:00 Document Registration [id number] 09/09/2012 08:41:00 Document Registration [id number] 06/01/2012 14:00:00 Document Registration [id number] 05/22/2012 12:13:00 Document Registration [id number] 05/19/2012 13:58:00 Document Registration [id number] 08/26/2011 05:33:00 Document Registration [id number] 08/19/2011 08:09:00 Document Registration [id number] 09/10/2010 00:08:00 Document Registration 02/23/18 07/28/2018 00:00:12 07/28/2018 23:59:59 [facility] Chago De Anda
[2018-08-13] MEDS ORDERED: ONDANSETRON 4 MG/2 ML (SDV) Z0FRAN IV PRN (03:00)
--- NOTE | 2018-08-13 03:00 | NUR ---
Pt c/o left hip pain. Dr. Major notified. Orders received for Oxycodone 5/325 mg PO Q4 PRN, et Fentanyl 50 mcg IV Q4 PRN severe pain.
[2018-08-13] MEDS ORDERED: fentaNYL INJECTION 100 MCG/2 ML AMP IVP PRN (03:15)
[2018-08-13] MEDS: NS IV 1000 ML 1,000 ML IV SCH ×4 (03:20→23:41)
[2018-08-13 05:35] LABS: BASOPHILS % (AUTO) 0 % (0-10); EOSINOPHILS % (AUTO) 1 % (0-10); HEMATOCRIT 31 % (40-54); HEMOGLOBIN 9.9 G/DL (13.3-17.7); LYMPHOCYTES # (AUTO) 0.6 X 10^3 (1.0-4.0); LYMPHOCYTES % (AUTO) 17 % (12-44); MEAN CORPUSCULAR HEMOGLOBIN 31 PG (25-34); MEAN CORPUSCULAR HGB CONC 32 G/DL (32-36); MEAN CORPUSCULAR VOLUME 96 FL (80-99); MEAN PLATELET VOLUME 9.4 FL (7.4-10.4); MONOCYTES # (AUTO) 0.4 X 10^3 (0.0-1.0); MONOCYTES % (AUTO) 12 % (0-12); NEUTROPHILS # (AUTO) 2.5 X 10^3 (1.8-7.8); NEUTROPHILS % (AUTO) 71 % (42-75); PLATELET COUNT 191 10^3/uL (130-400); RED CELL DISTRIBUTION WIDTH 13.8 % (10.0-14.5); WHITE BLOOD COUNT 3.6 10^3/uL (4.3-11.0)
[2018-08-13 05:55] LABS: ALANINE AMINOTRANSFERASE 28 U/L (0-55); ALBUMIN 3.5 GM/DL (3.2-4.5); ALKALINE PHOSPHATASE 208 U/L (40-136); BILIRUBIN,TOTAL 0.6 MG/DL (0.1-1.0); BUN/CREATININE RATIO 22; CARBON DIOXIDE 25 MMOL/L (21-32); CHLORIDE 108 MMOL/L (98-107); CREATININE SERUM 0.88 MG/DL (0.60-1.30); GFR ESTIMATED > 60; GLUCOSE 73 MG/DL (70-105); POTASSIUM 5.1 MMOL/L (3.6-5.0); SODIUM 140 MMOL/L (135-145); TOTAL PROTEIN 6.3 GM/DL (6.4-8.2)
--- NOTE | 2018-08-13 07:04 | Diagnostic Imaging Report ---
INDICATION: Left hip injury, pain, arthroplasty. COMPARISON: None. FINDINGS: Single view of the pelvis and multiple views of left hip demonstrate superior dislocation of the right hip prosthesis. There is no hardware loosening. No osseous fracture is seen. IMPRESSION: Dislocation of left hip arthroplasty. Dictated by: Dictated on workstation # [id number]
--- NOTE | 2018-08-13 07:07 | Diagnostic Imaging Report ---
INDICATION: Left hip pain COMPARISON: None. FINDINGS: Single view of the chest demonstrates clear lungs bilaterally. The heart is normal. There is no pneumothorax. The osseous structures normal. IMPRESSION: Negative chest. Dictated by: Dictated on workstation # [id number]
--- NOTE | 2018-08-13 07:09 | Diagnostic Imaging Report ---
INDICATION: Hip dislocation, post reduction COMPARISON: 08/13/2018 at 12:07 a.m. FINDINGS: Single view of the left hip demonstrates relocation of the left hip arthroplasty within the acetabular cup. IMPRESSION: Satisfactory post reduction views left hip Dictated by: Dictated on workstation # [id number]
[2018-08-13] MEDS: lisINopril 20 MG (PRINIVIL) TABLET PO SCH (08:33)
[2018-08-13] MEDS: ASPIRIN 81 MG CHEW (CHILDREN'S ASA) PO SCH (08:33)
[2018-08-13] MEDS: GABAPENTIN 600 MG (NEURONTIN) TAB PO SCH (08:33)
[2018-08-13] MEDS ORDERED: TAMS0.4C98 PO (09:46)
[2018-08-13] MEDS ORDERED: LISI-552 PO (09:46)
[2018-08-13] MEDS ORDERED: PIOG15TA67 PO (09:46)
[2018-08-13] MEDS ORDERED: MELO15TA39 PO (09:46)
[2018-08-13] MEDS ORDERED: GBPN600T PO ×2 (09:46)
[2018-08-13] MEDS ORDERED: LOVA20TA2 PO (09:46)
[2018-08-13] MEDS ORDERED: METF-399 PO (09:46)
[2018-08-13] MEDS ORDERED: HYDR-3820 PO (09:46)
[2018-08-13] MEDS ORDERED: GLIM2TAB PO (09:46)
[2018-08-13] MEDS ORDERED: NIAC500T24 PO (10:03)
[2018-08-13] MEDS ORDERED: FOLI0.4T2 PO (10:03)
[2018-08-13] MEDS ORDERED: ASPI-983 PO (10:03)
[2018-08-13] MEDS ORDERED: FLAX100031 PO (10:03)
--- NOTE | 2018-08-13 10:14 | NUR ---
SPOKE WITH THE PATIENT AND ABOUT MEDICATIONS. THEY HAD A LIST. I CALLED [facility] FOR A LIST OF RECENTLY FILLED MEDICATIONS WELL. [facility] FILLED: 08-04-18 METFORMIN 1000MG DAILY #30 08-02-18 PIOGLITAZONE 15MG DAILY #30 07-31-18 HYDROCODONE 10-325MG 1 Q4H PRN #90 07-31-18 FLOMAX 0.4MG BID #60 (NOT TAKING, HAS NOT STARTED BUT DID FILL) 07-19-18 LOVASTATIN 20MG DAILY #30 (TAKES AT HS) 07-19-18 LISINOPRIL 20MG 2 DAILY #60 (THIS WAS STOPPED AT HIS APPT. 2 DAYS AGO) 07-15-18 MOBIC 15MG DAILY #30 (THIS HAS BEEN DISCONTINUED) 05-28-18 GLIMEPIRIDE 2MG BID #180 05-22-18 GABAPENTIN 600MG 1/2 AM 1 HS 90 DAYS (ONLY TAKES 1 AT HS, AM DOSE WAS STOPPED) NOV CELEBREX 200MG (NO LONGER TAKING) OTC MEDS: ASPIRIN 81MG BID FOLIC ACID 0.4MG HS FLAXSEED OIL HS NIACIN HS
--- NOTE | 2018-08-13 11:00 | NUR ---
NOTE THAT THIS RN ASKED PT ABOUT FLU VACCINE AND PT VOICED HE DID NOT WANT TO TAKE IT
[2018-08-13] MEDS ORDERED: BETHANECHOL 25 MG (URECHOLINE) TAB PO NR (12:30)
--- NOTE | 2018-08-13 13:48 | Physical Therapy Evaluation ---
PT Evaluation-General Medical Diagnosis Admission Date Aug 13, 2018 at 01:30 Medical Diagnosis: Hypoglycemia, L Hip Dislocation Onset Date: Aug 12, 2018 Therapy Diagnosis Therapy Diagnosis: Decreased activity tolerance Height/Weight Height (Feet): 5 Height (Inches): 9.00 Weight (Pounds): 202 Weight (Ounces): 0.0 Precautions Precautions/Isolations: Fall Prevention, Standard Precautions Weight Bear Status Right Lower Extremity: Right Full Weight Bearing Left Lower Extremity: Left Full Weight Bearing Referral Physician: Amanda Major DO Reason for Referral: Evaluation/Treatment Medical History Pertinent Medical History: DM Additional Medical History L SHAMIKA 2 weeks ago Social History Home: Single Level Current Living Status: Spouse Entry Into Home: Stairs With Railing PT Steps Into Home: 3 Prior/Core FIM Prior Level of Function Therapy Code Descriptions/Definitions Functional [place] Measure: 0=Not Assessed/NA 4=Minimal Assistance 1=Total Assistance 5=Supervision or Setup 2=Maximal Assistance 6=Modified [place] 3=Moderate Assistance 7=Complete [place] Therapy Quality Codes: 6 Independent with activity with or without an assistive device 5 Patient requires set up or clean up by helper. Patient completes activity by themselves 4 Supervision or touching assist (CGA). [place] provide cues , steadying assist 3 The helper provides less than half the effort to complete the activity 2 The helper provides more than half the effort to complete the activity 1 Dependent. The helper does all the effort to complete an activity 7 Patient refused to complete or attempt activity 9 The patient did not perform the activity before the current illness or injury 88 Not attempted due to Medical conditions or safety concerns Functional Abilities and Goals: Independent: Patient completed the activities by him/herself, with or without an assistive device, with no assistance from a helper. Needed Some Help: Patient needed partial assistance from another person to complete activities. Dependent: A helper completed the activities for the patient. Unknown: Not Applicable: Bed Mobility: 6 Transfers (B,C,W/C) (FIM): 6 Gait: 6 Stairs: 6 Indoor Mobility (Ambulation): Independent Stairs: Independent Prior Devices Use: Walker Prior Device Use: FWW PT Evaluation-Current Subjective Pt was in bed and agreed to PT. Reports that he had just walked with the nurse fast food sales assistant. Pain Numeric Pain Scale: 0-No Pain Location: No Pain Reported Objective Patient Orientation: Person, Place, Situation, Normal For Age ROM/Strength ROM Lower Extremities NT Strength Lower Extremities NT Integumentary/Posture Bowel Incontinence: No Bladder Incontinence: No Sensory Vision: Functional Hearing: Functional Sensation Right Lower Extremit: Impaired Sensation Left Lower Extremity: Impaired Sensation Lower Extremities DM Transfers Therapy Code Descriptions/Definitions Functional [place] Measure: 0=Not Assessed/NA 4=Minimal Assistance 1=Total Assistance 5=Supervision or Setup 2=Maximal Assistance 6=Modified [place] 3=Moderate Assistance 7=Complete [place] Transfers (B, C, W/C) (FIM): 4 Supine to/from Sit: 4 Sit to/from Stand: 6 Gait Mode of Locomotion: Walk Anticipated Mode of Locomotion: Walk Distance (FIM): 3=150 ft Distance: 600' Gait Level of Assist: 6 Gait Persons Needed: 1 Gait Assistive Device: FWW Balance Sitting Static: Good Sitting Dynamic: Good Standing Static: Good Standing Dynamic: Good Assessment/Needs Pt required min A with supine to sit due to being used to sleeping in a recliner. Pt was able to sit<>stand indep to a FWW. Pt was able to amb 600' with FWW. Pt was also able to verbalize 2/3 main hip precautions he needs to follow. Pt reports he will be dismissing tomorrow. PT does not plan on adding pt to services. Rehab Potential: Good PT Plan Problem List Problem List: Activity Tolerance Treatment/Plan Treatment Plan: Discontinue PT Treatment Plan: Other Treatment Duration: Aug 13, 2018 Frequency: Estimated Hrs Per Day: Other Patient and/or Family Agrees t: Yes PT is d/c patient. Time/GCodes Time In: 1300 Time Out: 1311 Total Billed Treatment Time: 11 Total Billed Treatment 1 visit EVlowC 11 min G Codes Necessary: Yes PT/OT Therapy GCodes Therapy Functional Limitation: Physical Therapy Functional Limitation-Current Modifier: CI Functional Limitation-Goal Modifier: CI Functional Limitation-D/C Modifier: CI HARLAN DE OLIVEIRA PT Aug 13, 2018 13:48
[2018-08-13] MEDS: oxyCODONE/APAP 5/325MG (PERCOCET 5) TABLET PO PRN (16:10)
[2018-08-13] MEDS: BETHANECHOL 25 MG (URECHOLINE) TAB PO SCH ×2 (18:10→20:10)
--- NOTE | 2018-08-13 18:29 | History & Physicial ---
History of Present Illness History of Present Illness Reason for visit/HPI This is a 78 year old male with known DMII who is 2 weeks post-op from a left total hip arthroplasty. He had seen Dr. Villeda yesterday and stated was healing well but then sustained a minor fall last night when he was getting up out of bed and dislocated his left hip. The hip was able to be reduced in the emergency room but the patient was found to be hypoglycemic and hypotensive so it was decided to admit him for observation. He does admit that he has not been eating or drinking well since surgery and had only had 1 and 1/2 pieces of [place] chicken chunks for dinner the night before. His also states that his blood pressure has been running low since surgery. He stated last night was the first night he had been able to sleep in bed but then he had woke up and was going to go rest on the couch when he became weak and lowered himself to the floor. Date of Admission Aug 13, 2018 at 01:30 Date Seen by a Provider: Aug 13, 2018 Time Seen by a Provider: 12:35 I consulted on this patient on 08/13/18 18:24 Attending Physician Amanda Arango DO Admitting Physician Amanda Arango DO Consult Allergies and Home Medications Allergies Coded Allergies: No Known Drug Allergies (Unverified , 09/09/10) Home Medications Aspirin 81 Mg Tablet.dr, 81 MG PO BID, (Reported) Flaxseed Oil 1,000 Mg Capsule, 1,000 MG PO HS, (Reported) Folic Acid 0.4 Mg Tablet, 0.4 MG PO HS, (Reported) Gabapentin 600 Mg Tablet, 600 MG PO HS, (Reported) Glimepiride 2 Mg Tablet, 2 MG PO BID, (Reported) Hydrocodone/Acetaminophen 1 Each Tablet, 1 TAB PO Q4H PRN for PAIN-MODERATE, ( Reported) Lovastatin 20 Mg Tablet, 20 MG PO HS, (Reported) Metformin HCl 1,000 Mg Tablet, 1,000 MG PO HS, (Reported) Niacinamide 500 Mg Tablet, 500 MG PO HS, (Reported) Pioglitazone HCl 15 Mg Tablet, 15 MG PO HS, (Reported) Patient Home Medication List Home Medication List Reviewed: Yes Past Mvszinq-Cvtfbe-Wnrkez Hx Patient Social History Marrital Status: Employed/Student: retired Alcohol Use: Denies Use Recreational Drug Use: No Smoking Status: Never a Smoker 2nd Hand Smoke Exposure: No Physical Abuse Screen: No Sexual Abuse: No Recent Foreign Travel: No Contact w/other who traveled: No Recent Hopitalizations: Yes (hip replacement) Recent Infectious Disease Expo: No Immunizations Up To Date Tetanus Booster (TDap): Less than 5yrs Seasonal Allergies Seasonal Allergies: No Surgeries Yes (CARPAL TUNNEL, BACK SURGERY, CIRCUMCISION, left hip) Orthopedic Respiratory No Cardiovascular Yes High Cholesterol, Hypertension Neurological No Reproductive System Hx Reproductive Disorders: No Sexually Transmitted Disease: No Genitourinary No Gastrointestinal Yes Pancreatitis Musculoskeletal Yes Arthritis Endocrine History of Endocrine Disorders: No HEENT History of HEENT Disorders: No Cancer No Psychosocial History of Psychiatric Problem: No Integumentary History of Skin or Integumenta: No Blood Transfusions History of Blood Disorders: No Family Medical History Family Hx: Patient reports no known family medical history. Review of Systems Constitutional: weakness EENTM: No see HPI, No no symptoms reported, No ear discharge, No hearing loss, No ear pain, No blurred vision, No double vision, No eye pain, No tearing, No vision loss, No dental problems, No hoarseness, No mouth pain, No mouth swelling , No epistaxis, No nose congestion, No nose pain, No throat pain, No throat swelling, No other Respiratory: No no symptoms reported, No see HPI, No cough, No dyspnea on exertion, No hemoptysis, No orthopnea, No phlegm, No short of breath, No stridor , No wheezing, No other Cardiovascular: No no symptoms reported, No see HPI, No chest pain, No edema, No Hx of Intervention, No palpitations, No syncope, No vascular heart diseas, No other Gastrointestinal: loss of appetite Genitourinary: decreased output, frequency Musculoskeletal: joint pain (left hip) Skin: other (left hip wound healing well) Psychiatric/Neurological: Weakness Physical Exam Vital Signs Vital Signs - First Documented 08/12/18 08/13/18 23:53 00:25 Temp 96.5 Pulse 103 Resp 18 B/P (MAP) 136/91 (106) Pulse Ox 100 O2 Delivery Room Air O2 Flow Rate 2.00 Capillary Refill : Less Than 3 Seconds Height, Weight, BMI Height: 5'9.00" Weight: 202lbs. 0.0oz. [id number]; 29.8 BMI Method:Stated General Appearance: No Apparent Distress HEENT: Pharynx Normal Neck: Supple Respiratory: Lungs Clear Cardiovascular: Regular Rate, Rhythm, Systolic Murmur Gastrointestinal: Normal Bowel Sounds, Non Tender, Soft Rectal: Deferred Back: No CVA Tenderness Extremity: Non Tender, No Calf Tenderness, No Pedal Edema Neurologic/Psychiatric: Alert, Oriented x3 Skin: Warm/Dry, Other (left hip wound healing well with no drainage and no erythema) Comments Laboratory Tests 08/13/18 00:40: Glucometer 126H 08/13/18 00:54: Urine Color YELLOW, Urine Clarity CLEAR, Urine pH 5, Urine Specific [place] 1.020, Urine Protein 1+H, Urine Glucose (UA) 2+H, Urine Ketones NEGATIVE, Urine Nitrite NEGATIVE, Urine Bilirubin NEGATIVE, Urine Urobilinogen NORMAL, Urine Leukocyte Esterase NEGATIVE, Urine RBC (Auto) NEGATIVE, Urine RBC NONE, Urine WBC NONE, Urine Squamous Epithelial Cells RARE, Urine Crystals NONE, Urine Bacteria TRACE, Urine Casts NONE, Urine Mucus NEGATIVE, Urine Culture Indicated CULTURE PENDING 08/13/18 03:00: Lactic Acid Level 1.01 08/13/18 05:18: Glucometer 69L 08/13/18 05:21: White Blood Count 3.6L, Red Blood Count 3.21L, Hemoglobin 9.9L, Hematocrit 31L, Mean Corpuscular Volume 96, Mean Corpuscular Hemoglobin 31, Mean Corpuscular Hemoglobin Concent 32, Red Cell Distribution Width 13.8, Platelet Count 191, Mean Platelet Volume 9.4, Neutrophils (%) (Auto) 71, Lymphocytes (%) (Auto) 17, Monocytes (%) (Auto) 12, Eosinophils (%) (Auto) 1, Basophils (%) (Auto) 0, Neutrophils # (Auto) 2.5, Lymphocytes # (Auto) 0.6L, Monocytes # (Auto) 0.4, Eosinophils # (Auto) 0.0, Basophils # (Auto) 0.0, Sodium Level 140, Potassium Level 5.1H, Chloride Level 108H, Carbon Dioxide Level 25, Anion Gap 7, Blood Urea Nitrogen 19H, Creatinine 0.88, Estimat Glomerular Filtration Rate > 60, BUN /Creatinine Ratio 22, Glucose Level 73, Calcium Level 9.0, Corrected Calcium 9.4 , Total Bilirubin 0.6, Aspartate Amino Transf (AST/SGOT) 42H, Alanine Aminotransferase (ALT/SGPT) 28, Alkaline Phosphatase 208H, Total Protein 6.3L, Albumin 3.5 08/13/18 06:20: Glucometer 90 08/13/18 12:07: Glucometer 114H 08/13/18 17:55: Glucometer 161H Microbiology 08/13/18 Blood Culture - Preliminary, Resulted No growth Assessment/Plan Assessment and Plan 1. Fall from acute hypoglycemia and hypotension--admit and adjust medications and monitor BS and BP 2. Recent left total hip arthroplasty with left prosthesis dislocation from fall--able to be reduced in ER 3. DMII with hypoglycemic event--decrease diabetes meds and monitor BS 4. Hypertension with recent hypotension--decrease BP meds and monitor BP 5. Post-op urinary retention--start urecholine Admission Diagnosis Admission Status: Observation Clinical Quality Measures DVT/VTE Risk/Contraindication: Risk Factor Score Per Nursin RFS Level Per Nursing on Admit: 4+=Very High AMANDA ARANGO DO Aug 13, 2018 18:29
[2018-08-13] MEDS: ASPIRIN E.C. 81 MG (ECOTRIN) TAB PO SCH (20:10)
[2018-08-13] MEDS ORDERED: SIMvastatin 10 MG (ZOCOR) TAB PO SCH (21:00)
[2018-08-13] MEDS ORDERED: GABAPENTIN 600 MG (NEURONTIN) TAB PO SCH (21:00)
[2018-08-14 00:51] VITALS: BP 100/58
[2018-08-14] MEDS: NS IV 1000 ML 1,000 ML IV SCH ×2 (02:50→09:08)
[2018-08-14 04:00] VITALS: BP 110/53
[2018-08-14 05:57] LABS: BASOPHILS % (AUTO) 1 % (0-10); EOSINOPHILS % (AUTO) 1 % (0-10); HEMATOCRIT 27 % (40-54); HEMOGLOBIN 8.7 G/DL (13.3-17.7); LYMPHOCYTES # (AUTO) 0.5 X 10^3 (1.0-4.0); LYMPHOCYTES % (AUTO) 22 % (12-44); MEAN CORPUSCULAR HEMOGLOBIN 31 PG (25-34); MEAN CORPUSCULAR HGB CONC 32 G/DL (32-36); MEAN CORPUSCULAR VOLUME 98 FL (80-99); MONOCYTES # (AUTO) 0.3 X 10^3 (0.0-1.0); MONOCYTES % (AUTO) 15 % (0-12); NEUTROPHILS # (AUTO) 1.3 X 10^3 (1.8-7.8); NEUTROPHILS % (AUTO) 61 % (42-75); PLATELET COUNT 139 10^3/uL (130-400); WHITE BLOOD COUNT 2.2 10^3/uL (4.3-11.0)
[2018-08-14 06:15] LABS: ALANINE AMINOTRANSFERASE 33 U/L (0-55); ALBUMIN 3.3 GM/DL (3.2-4.5); ALKALINE PHOSPHATASE 202 U/L (40-136); BILIRUBIN,TOTAL 0.6 MG/DL (0.1-1.0); BUN/CREATININE RATIO 14; CALCIUM 8.8 MG/DL (8.5-10.1); CARBON DIOXIDE 21 MMOL/L (21-32); CHLORIDE 111 MMOL/L (98-107); CREATININE SERUM 0.79 MG/DL (0.60-1.30); GFR ESTIMATED > 60; GLUCOSE 102 MG/DL (70-105); POTASSIUM 4.3 MMOL/L (3.6-5.0); SODIUM 142 MMOL/L (135-145); TOTAL PROTEIN 5.7 GM/DL (6.4-8.2)
[2018-08-14] MEDS: BETHANECHOL 25 MG (URECHOLINE) TAB PO SCH ×2 (06:42→09:07)
[2018-08-14] MEDS ORDERED: FOLIC ACID 1 MG TAB PO SCH (07:00)
[2018-08-14 08:00] VITALS: BP 104/43
[2018-08-14] MEDS: lisINopril 20 MG (PRINIVIL) TABLET PO SCH (09:07)
[2018-08-14] MEDS: GABAPENTIN 600 MG (NEURONTIN) TAB PO SCH (09:07)
[2018-08-14] MEDS: oxyCODONE/APAP 5/325MG (PERCOCET 5) TABLET PO PRN (09:07)
[2018-08-14] MEDS: ASPIRIN 81 MG CHEW (CHILDREN'S ASA) PO SCH (09:07)
[2018-08-14] MEDS: ASPIRIN E.C. 81 MG (ECOTRIN) TAB PO SCH (09:08)
[2018-08-14] MEDS ORDERED: BETH25TA PO (11:43)
[2018-08-14] MEDS ORDERED: METF-399 PO (11:43)
--- NOTE | 2018-08-14 11:50 | Discharge Inst-Simple/Standard ---
Discharge Inst-Standard Patient Instructions/Follow Up Plan of Care/Instructions/FU: Fwup , Aug 20 Activity as Tolerated: Yes Discharge Diet: ADA Diet, Cardiac Diet CHAGO ARANGO DO Aug 14, 2018 11:50
--- NOTE | 2018-08-14 12:51 | Discharge Summary ---
Diagnosis/Chief Complaint Date of Admission Aug 13, 2018 at 01:30 Date of Discharge Discharge Date: Aug 14, 2018 Discharge Diagnosis 1. Fall from acute hypoglycemia and hypotension--improving 2. Recent left total hip arthroplasty with left prosthesis dislocation from fall--able to be reduced in ER, up ambulating with minimal pain 3. DMII with hypoglycemic event--decreased diabetes meds and will monitor BS at home 4. Hypertension with recent hypotension--decrease BP meds and monitor BP 5. Post-op urinary retention--improved with urecholine Reason Hospital Visit This is a 78 year old male with known DMII who is 2 weeks post-op from a left total hip arthroplasty. He had seen Dr. Villeda yesterday and stated was healing well but then sustained a minor fall last night when he was getting up out of bed and dislocated his left hip. The hip was able to be reduced in the emergency room but the patient was found to be hypoglycemic and hypotensive so it was decided to admit him for observation. He does admit that he has not been eating or drinking well since surgery and had only had 1 and 1/2 pieces of [place] chicken chunks for dinner the night before. His also states that his blood pressure has been running low since surgery. He stated last night was the first night he had been able to sleep in bed but then he had woke up and was going to go rest on the couch when he became weak and lowered himself to the floor. Discharge Summary Hospital Course Hospital Course This is a 78 year old male with known DMII who is 2 weeks post-op from a left total hip arthroplasty. He had seen Dr. Villeda yesterday and stated was healing well but then sustained a minor fall last night when he was getting up out of bed and dislocated his left hip. The hip was able to be reduced in the emergency room but the patient was found to be hypoglycemic and hypotensive so it was decided to admit him for observation. He does admit that he has not been eating or drinking well since surgery and had only had 1 and 1/2 pieces of [place] chicken chunks for dinner the night before. His also states that his blood pressure has been running low since surgery. He stated last night was the first night he had been able to sleep in bed but then he had woke up and was going to go rest on the couch when he became weak and lowered himself to the floor. His blood pressure and blood sugar continued to run low during his hospital stay so several of his medications were held. He was given IV fluids and started on urecholine for urinary retention and his urinary status was improving by discharge. He had been up walking with PT with minimal pain in his left hip and no instability. His appetite was still not great but he was eating and denied any nausea. He was anxious to go home and stated his daughter who is a nurse is off this weekend and will be coming to check on him. I will see him in 1 week and I did instruct him that he needed to followup with Dr. Villeda as well. Labs Laboratory Tests 08/12/18 00:00: White Blood Count 3.5L, Red Blood Count 3.23L, Hemoglobin 10.0L, Hematocrit 31L , Lymphocytes # (Auto) 0.7L, Blood Urea Nitrogen 24H, Glucose Level 193H, Lactic Acid Level 2.13*H, Aspartate Amino Transf (AST/SGOT) 43H, Alkaline Phosphatase 213H 08/13/18 00:40: Glucometer 126H 08/13/18 00:54: Urine Protein 1+H, Urine Glucose (UA) 2+H 08/13/18 03:00: 08/13/18 05:18: Glucometer 69L 08/13/18 05:21: White Blood Count 3.6L, Red Blood Count 3.21L, Hemoglobin 9.9L, Hematocrit 31L, Lymphocytes # (Auto) 0.6L, Potassium Level 5.1H, Chloride Level 108H, Blood Urea Nitrogen 19H, Aspartate Amino Transf (AST/SGOT) 42H, Alkaline Phosphatase 208H, Total Protein 6.3L 08/13/18 06:20: 08/13/18 12:07: Glucometer 114H 08/13/18 17:55: Glucometer 161H 08/14/18 00:37: 08/14/18 05:24: 08/14/18 05:25: White Blood Count 2.2L, Red Blood Count 2.77L, Hemoglobin 8.7L, Hematocrit 27L, Monocytes (%) (Auto) 15H, Neutrophils # (Auto) 1.3L, Lymphocytes # (Auto) 0.5L, Chloride Level 111H, Aspartate Amino Transf (AST/SGOT) 52H, Alkaline Phosphatase 202H, Total Protein 5.7L Procedures None. Discharge Physical Examination Allergies: Coded Allergies: No Known Drug Allergies (Unverified , 09/09/10) Vitals & I&Os Vital Signs Date Time Temp Pulse Resp B/P (MAP) Pulse Ox O2 Delivery O2 Flow Rate FiO2 08/14/18 08:00 Room Air 08/14/18 08:00 97.3 74 18 104/43 (63) 100 08/13/18 08:00 6.00 General Appearance: Alert, Oriented X3 Respiratory: Clear to Auscultation Cardiovascular: Regular Rate Abdominal: Normal Bowel Sounds, Soft, No Tenderness Extremities: No Tenderness/Swelling Skin: Other (left hip wound healing well with no erythema) Neuro: Other (no pain with palpation of left hip) Psych/Mental Status: Mental Status NL Discharge Home Medications Reviewed and agree with Discharge Medication list on patient's Discharge Instruction sheet Instructions to Patient/Family Please see electronic discharge instructions given to patient. Clinical Quality Measures DVT/VTE Risk/Contraindication: Risk Factor Score Per Nursin RFS Level Per Nursing on Admit: 4+=Very High CHAGO ARANGO DO Aug 14, 2018 12:51
--- NOTE | 2018-08-14 13:56 | NUR ---
QUINN LOVETT demonstrates understanding of discharge instructions and accurately returns instructions upon questioning. Copy of Post-Discharge Instructions and Medication Discharge Instructions given to patient. QUINN LOVETT is able to manage continuing needs after discharge. Patients belongings returned to patient. Skin dry and intact; no breakdown noted. Patient discharged from [facility] on 08/14/2018 at 1356. QUINN LOVETT left floor via wheelchair, accompanied by staff.
[2018-08-14 13:59] VITALS: BP 104/43
--- OUTSIDE RECORDS SUMMARY | 2018-08-17 14:48 | XMS REPORT | Continuity of Care Document ---
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 02/22/2016 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 SENIOR ANALYST DEVELOPER Ot 287.5 THROMBOCYTOPENIA NOS 02/22/2016 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 SENIOR ANALYST DEVELOPER Ot 288.51 LYMPHOCYTOPENIA 02/22/2016 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 SENIOR ANALYST DEVELOPER Ot 789.2 SPLENOMEGALY 02/22/2016 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 SENIOR ANALYST DEVELOPER Ot V58.69 OTH MED,LT,CURRENT USE 02/22/2016 Ot [...] 287.5 THROMBOCYTOPENIA NOS 09/02/2016 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 SENIOR ANALYST DEVELOPER Ot 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 09/02/2016 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 SENIOR ANALYST DEVELOPER Ot 287.5 THROMBOCYTOPENIA NOS 09/02/2016 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 SENIOR ANALYST DEVELOPER Ot 288.51 LYMPHOCYTOPENIA 09/02/2016 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 SENIOR ANALYST DEVELOPER Ot 789.2 SPLENOMEGALY 09/02/2016 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 SENIOR ANALYST DEVELOPER Ot V58.69 OTH MED,LT,CURRENT USE 09/02/2016 Ot [...] g/dL 3.2-4.5 CALCIUM CORRECTED 9.0 mg/dL 8.5-10.1 Bacterial blood culture - 08/12/18 00:00 Bacterial blood culture NG NRG Bacterial blood culture - 08/13/18 00:33 Bacterial blood culture NG NRG Capillary blood glucose measurement by glucometer (mass/volume) [...] with reflex to culture CULTURE PENDING NRG Bacterial urine culture - 08/13/18 00:54 Bacterial urine culture NG NRG Serum or plasma lactate measurement (moles/volume) - 08/13/18 03:00 Serum or plasma lactate measurement (moles/volume) 1.01 mmol/L 0.50-2.00 Capillary blood glucose measurement by glucometer (mass/volume) - 08/13/18 05: 18 Capillary blood glucose measurement by glucometer (mass/volume) 69 mg/dL 70-110 Complete blood count (CBC) with automated white blood cell (WBC) differential - 08/13/18 05:21 Blood leukocytes automated count (number/volume) 3.6 10*3/uL 4.3-11.0 Blood erythrocytes automated count (number/volume) 3.21 10*6/uL 4.35-5.85 Venous blood hemoglobin measurement (mass/volume) 9.9 g/dL 13.3-17.7 Blood hematocrit (volume fraction) 31 % 40-54 Automated erythrocyte mean corpuscular volume 96 [foz_us] 80-99 Automated erythrocyte mean corpuscular hemoglobin (mass per erythrocyte) 31 pg 25-34 Automated erythrocyte mean corpuscular hemoglobin concentration measurement ( mass/volume) 32 g/dL 32-36 Automated erythrocyte distribution width ratio 13.8 % 10.0-14.5 Automated blood platelet count (count/volume) 191 10*3/uL 130-400 Automated blood platelet mean volume measurement 9.4 [foz_us] 7.4-10.4 Automated blood neutrophils/100 leukocytes 71 % 42-75 Automated blood lymphocytes/100 leukocytes 17 % 12-44 Blood monocytes/100 leukocytes 12 % 0-12 Automated blood eosinophils/100 leukocytes 1 % 0-10 Automated blood basophils/100 leukocytes 0 % 0-10 Blood neutrophils automated count (number/volume) 2.5 10*3 1.8-7.8 Blood lymphocytes automated count (number/volume) 0.6 10*3 1.0-4.0 Blood monocytes automated count (number/volume) 0.4 10*3 0.0-1.0 Automated eosinophil count 0.0 10*3/uL 0.0-0.3 Automated blood basophil count (count/volume) 0.0 10*3/uL 0.0-0.1 Comprehensive metabolic panel - 08/13/18 05:21 Serum or plasma sodium measurement (moles/volume) 140 mmol/L 135-145 Serum or plasma potassium measurement (moles/volume) 5.1 mmol/L 3.6-5.0 Serum or plasma chloride measurement (moles/volume) 108 mmol/L 98-107 Carbon dioxide 25 mmol/L 21-32 Serum or plasma anion gap determination (moles/volume) 7 mmol/L 5-14 Serum or plasma urea nitrogen measurement (mass/volume) 19 mg/dL 7-18 Serum or plasma creatinine measurement (mass/volume) 0.88 mg/dL 0.60-1.30 Serum or plasma urea nitrogen/creatinine mass ratio 22 NRG Serum or plasma creatinine measurement with calculation of estimated glomerular filtration rate > NRG Serum or plasma glucose measurement (mass/volume) 73 mg/dL 70-105 Serum or plasma calcium measurement (mass/volume) 9.0 mg/dL 8.5-10.1 Serum or plasma total bilirubin measurement (mass/volume) 0.6 mg/dL 0.1-1.0 Serum or plasma alkaline phosphatase measurement (enzymatic activity/volume) 208 U/L 40-136 Serum or plasma aspartate aminotransferase measurement (enzymatic activity/ volume) 42 U/L 5-34 Serum or plasma alanine aminotransferase measurement (enzymatic activity/volume ) 28 U/L 0-55 Serum or plasma protein measurement (mass/volume) 6.3 g/dL 6.4-8.2 Serum or plasma albumin measurement (mass/volume) 3.5 g/dL 3.2-4.5 CALCIUM CORRECTED 9.4 mg/dL 8.5-10.1 Capillary blood glucose measurement by glucometer (mass/volume) - 08/13/18 06: 20 Capillary blood glucose measurement by glucometer (mass/volume) 90 mg/dL 70-110 Capillary blood glucose measurement by glucometer (mass/volume) - 08/13/18 12: 07 Capillary blood glucose measurement by glucometer (mass/volume) 114 mg/dL 70-110 Capillary blood glucose measurement by glucometer (mass/volume) - 08/13/18 17: 55 Capillary blood glucose measurement by glucometer (mass/volume) 161 mg/dL 70-110 Capillary blood glucose measurement by glucometer (mass/volume) - 08/14/18 00: 37 Capillary blood glucose measurement by glucometer (mass/volume) 109 mg/dL 70-110 Capillary blood glucose measurement by glucometer (mass/volume) - 08/14/18 05: 24 Capillary blood glucose measurement by glucometer (mass/volume) 102 mg/dL 70-110 Complete blood count (CBC) with automated white blood cell (WBC) differential - 08/14/18 05:25 Blood leukocytes automated count (number/volume) 2.2 10*3/uL 4.3-11.0 Blood erythrocytes automated count (number/volume) 2.77 10*6/uL 4.35-5.85 Venous blood hemoglobin measurement (mass/volume) 8.7 g/dL 13.3-17.7 Blood hematocrit (volume fraction) 27 % 40-54 Automated erythrocyte mean corpuscular volume 98 [foz_us] 80-99 Automated erythrocyte mean corpuscular hemoglobin (mass per erythrocyte) 31 pg 25-34 Automated erythrocyte mean corpuscular hemoglobin concentration measurement ( mass/volume) 32 g/dL 32-36 Automated erythrocyte distribution width ratio 14.0 % 10.0-14.5 Automated blood platelet count (count/volume) 139 10*3/uL 130-400 Automated blood platelet mean volume measurement 10.0 [foz_us] 7.4-10.4 Automated blood neutrophils/100 leukocytes 61 % 42-75 Automated blood lymphocytes/100 leukocytes 22 % 12-44 Blood monocytes/100 leukocytes 15 % 0-12 Automated blood eosinophils/100 leukocytes 1 % 0-10 Automated blood basophils/100 leukocytes 1 % 0-10 Blood neutrophils automated count (number/volume) 1.3 10*3 1.8-7.8 Blood lymphocytes automated count (number/volume) 0.5 10*3 1.0-4.0 Blood monocytes automated count (number/volume) 0.3 10*3 0.0-1.0 Automated eosinophil count 0.0 10*3/uL 0.0-0.3 Automated blood basophil count (count/volume) 0.0 10*3/uL 0.0-0.1 Comprehensive metabolic panel - 08/14/18 05:25 Serum or plasma sodium measurement (moles/volume) 142 mmol/L 135-145 Serum or plasma potassium measurement (moles/volume) 4.3 mmol/L 3.6-5.0 Serum or plasma chloride measurement (moles/volume) 111 mmol/L 98-107 Carbon dioxide 21 mmol/L 21-32 Serum or plasma anion gap determination (moles/volume) 10 mmol/L 5-14 Serum or plasma urea nitrogen measurement (mass/volume) 11 mg/dL 7-18 Serum or plasma creatinine measurement (mass/volume) 0.79 mg/dL 0.60-1.30 Serum or plasma urea nitrogen/creatinine mass ratio 14 NRG Serum or plasma creatinine measurement with calculation of estimated glomerular filtration rate > NRG Serum or plasma glucose measurement (mass/volume) 102 mg/dL 70-105 Serum or plasma calcium measurement (mass/volume) 8.8 mg/dL 8.5-10.1 Serum or plasma total bilirubin measurement (mass/volume) 0.6 mg/dL 0.1-1.0 Serum or plasma alkaline phosphatase measurement (enzymatic activity/volume) 202 U/L 40-136 Serum or plasma aspartate aminotransferase measurement (enzymatic activity/ volume) 52 U/L 5-34 Serum or plasma alanine aminotransferase measurement (enzymatic activity/volume ) 33 U/L 0-55 Serum or plasma protein measurement (mass/volume) 5.7 g/dL 6.4-8.2 Serum or plasma albumin measurement (mass/volume) 3.3 g/dL 3.2-4.5 CALCIUM CORRECTED 9.4 mg/dL 8.5-10.1 Capillary blood glucose measurement by glucometer (mass/volume) - 08/14/18 12: 24 Capillary blood glucose measurement by glucometer (mass/volume) 124 mg/dL 70-110 Encounters ACCT No. Visit Date/Time Discharge Status Pt. Type Provider Facility Loc./Unit Complaint [id number] 08/13/2018 01:30:00 08/14/2018 13:56:00 DIS Inpatient CHAGO MAJOR DO [facility] 4TH HYPOGLYCEMIA,L HIP DISLOCATION [id number] 09/02/2016 07:56:00 09/02/2016 23:59:59 CLS Outpatient CHAGO MAJOR DO S [facility] CARD CARDIAC MURMUR [id number] 02/22/2016 08:53:00 02/22/2016 23:59:59 CLS Outpatient CHAGO MAJOR DO S [facility] CARD CARDIAC MURMUR [id number] 11/11/2013 07:55:00 11/11/2013 23:59:59 CLS Outpatient ALEX CHAO MD [facility] RAD LUMBAR STENOSIS [id number] 01/28/2013 08:43:00 01/28/2013 23:59:59 CLS Outpatient 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 SENIOR ANALYST DEVELOPER [facility] ONC [id number] 10/28/2012 10:54:00 01/26/2013 00:01:00 DIS Outpatient JIL TITUS [facility] ONC [id number] 01/27/2013 00:00:00 Document Registration [id number] 10/14/2012 08:40:00 Document Registration [id number] 09/09/2012 08:41:00 Document Registration [id number] 06/01/2012 14:00:00 Document Registration [id number] 05/22/2012 12:13:00 Document Registration [id number] 05/19/2012 13:58:00 Document Registration [id number] 08/26/2011 05:33:00 Document Registration [id number] 08/19/2011 08:09:00 Document Registration [id number] 09/10/2010 00:08:00 Document Registration 02/23/18 08/17/2018 09:03:51 ACT Outpatient Chago Major.
== END 2018-08-14 11:43 | disposition home or self-care (01) ==
LOC: EDUNIT# 23:52 → ER 23:54 → 4TH 23:55 → UNDOADMOB 08-13 01:30 → UNDODISOB 08-14 13:56
PROVIDERS: ADMIT Family Medicine; ATTEND Family Medicine
DX: E11.649 Type 2 diabetes mellitus with hypoglycemia without coma (principal); I95.9 Hypotension, unspecified; I10 Essential (primary) hypertension; R32 Unspecified urinary incontinence; Z96.642 Presence of left artificial hip joint; T84.021A Dislocation of internal left hip prosthesis, initial encounter; W06.XXXA Fall from bed, initial encounter; E78.00 Pure hypercholesterolemia, unspecified; Z79.82 Long term (current) use of aspirin; Z79.84 Long term (current) use of oral hypoglycemic drugs; Z79.899 Other long term (current) drug therapy
CPT/HCPCS: 36415; 71045; 73501; 80053; 81000; 82962; 83605; 85025; 85610; 85730; 87040; 87088; 93041; G0378

== ENCOUNTER 2021-05-16 05:34 | Outpatient (CLI) | payer MEDICARE ==
[~2021-05-16] VITALS: Ht 170.2 cm; Wt 73.6 kg
[~2021-05-16 05:34] MED LIST changes: +ACHYD1T PO; +ASPI-1238 PO; +BETH25TA PO; +FLAX100031 PO; +FOLI0.4T6 PO; +GBPN600T PO; +GLIM2TAB4 PO; +LISI20TA26 PO; +MELO15TA39 PO; +METF-399 PO; +NIAC500T24 PO; +PIOG15TA67 PO; +TMSL.4C PO
[2021-05-17] MEDS ORDERED: METF-397 PO (09:03)
== END 2021-05-17 09:38 | disposition home or self-care (01) ==
LOC: PREOP 05:34
PROVIDERS: ATTEND Surgery
DX: Z01.818 Encounter for other preprocedural examination (principal)

== ENCOUNTER 2021-05-23 10:04 | Day surgery (SDC) | payer MEDICARE, OTHER ==
[~2021-05-23] VITALS: Ht 170.2 cm; Wt 73.6 kg
[2021-05-23] VITALS (8 sets, daily range): BP systolic 116–147; BP diastolic 61–90
[~2021-05-23 10:04] MED LIST changes: +METF-397 PO
--- NOTE | 2021-05-23 10:26 | Progress Note-Pre Operative ---
Pre-Operative Progress Note H&P Reviewed The H&P was reviewed, patient examined and no changes noted. Time Seen by Provider: 10:25 Date H&P Reviewed: May 23, 2021 Time H&P Reviewed: 10:25 Pre-Operative Diagnosis: Left hand mass, site marked CASEY KERR DO May 23, 2021 10:26
[2021-05-23] MEDS ORDERED: ceFAZolin INJECTION 1,000 MG in WATER (STERILE) FOR INJECTION 10 ML IV ONE (10:45)
[2021-05-23] MEDS ORDERED: LACTATED RINGERS 1,000 ML IV PRN (10:45)
[2021-05-23] MEDS ORDERED: morphine INJ 10 MG/ML 1ML (SYR OR VIAL) IVP ONE (11:45)
[2021-05-23] MEDS ORDERED: MEPERIDINE (DEMEROL) INJ 50 MG/ML IVP ONE (11:45)
[2021-05-23] MEDS ORDERED: fentaNYL INJ 100 MCG/2 ML AMP IVP ONE (11:45)
[2021-05-23] MEDS ORDERED: ONDANSETRON 4 MG/2 ML (SDV) Z0FRAN IVP PRN (11:45)
[2021-05-23] MEDS ORDERED: LIDOCAINE/EPI 1%-1:100,000 (XYLOCAINE) 20ML ONE (12:24)
--- NOTE | 2021-05-23 13:08 | Progress Note-Post Operative ---
Post-Operative Progess Note Surgeon (s)/Online Project Manager (s) Surgeon CASEY KERR DO Online Project Manager: SISI Lugo Pre-Operative Diagnosis Left hand mass, site marked Post-Operative Diagnosis same pending path Procedure & Operative Findings Date of Procedure 05/23/21 Procedure Performed/Findings Exc left hand mass, 1.5 x 4.9 cm incision Anesthesia Type IV sedation by PIPE ORGAN MECHANIC Estimated Blood Loss Estimated blood loss (mL): less than 5ml Specimens/Packing Specimens Removed left hand mass CASEY KERR DO May 23, 2021 13:08
[2021-05-23] MEDS ORDERED: ACHD5005 PO (13:09)
--- NOTE | 2021-05-23 13:11 | Discharge Inst-Surgical ---
Discharge Inst-Surgical Depart Medication/Instructions New, Converted or Re-Newed RX: Transmitted to Pharmacy Patient Instructions Follow up Appt: Make appointment for 1 week. [phone] Instructions: No strenuous activity. May shower in 24 hours, no tub bath or soaking. Use incentive spirometer at home as directed. No Smoking Skin/Wound Care: May remove bandages in am. You need to leave the stitches in place and come in to the office to have them removed. Symptoms to Report: Appetite Changes, Extremity Discoloration, Numbness/Tingling, Swelling Increased, Bleeding Excessive, Eyesight Changes, Pain Increased, Urine Color Change, Constipation(Persistent), Fever over 101 degree F, Pain/Pressure in chest, Urinating Difficulty, Cough Up/Vomit Blood, Heart Beat Irreg/Pounding, Pain/Pressure in jaw, Cramps in feet or legs, Lightheadedness, Pain/Pressure in shoulder, Diarrhea(Persistent), Memory Changes Suddenly, Questions/Concerns, Weight gain consecutive days, Dizziness/Fainting, Nausea/Vomiting, Shortness of Breath, Weight gain over 2 pounds If questions or concerns contact your physician Or seek help at emergency department. Activity Activity as Tolerated: Yes Activity Instructions: Avoid Stress to Incision Driving Instructions: No Driving/Refer to Dr. Enriquez Discharge Diet: No Restrictions Diet After 24 Hours: Clear Liquid if Nauseous If Any Problems/Questions/Issu: Contact Your Physician, Go to Emergency Room Skin/Wound Care Infection Signs and Symptoms: Increased Redness, Foul Odor of Wound, Increased Drainage, Skin Itchy or Has a Rash, Increased Swelling, Temperature Above 101 F Bathing Instructions: Shower Stitches/[place]/Dermabond Dis: Care of Stiemeliaes CASEY KERR DO May 23, 2021 13:11
[2021-05-23] MEDS ORDERED: PROPOFOL INJECTION 50 ML IV ONE (13:13)
--- NOTE | 2021-05-23 13:21 | Anesthesia-General Post-Op ---
General Patient Condition Mental Status/LOC: Same as Preop Cardiovascular: Satisfactory Nausea/Vomiting: Absent Respiratory: Satisfactory Pain: Controlled Complications: Absent Post Op Complications Complications None Follow Up Care/Instructions Patient Instructions None needed. Anesthesia/Patient Condition Patient Condition Patient is doing well, no complaints, stable vital signs, no apparent adverse anesthesia problems. No complications reported per nursing. ESME CONNORS CRNA May 23, 2021 13:21
--- NOTE | 2021-05-23 23:00 | OPERATIVE REPORT ---
DATE OF SERVICE: 05/23/2021 PREOPERATIVE DIAGNOSIS: Left hand mass. POSTOPERATIVE DIAGNOSIS: Left hand mass, pending pathology. PROCEDURE: Excision of left hand mass on the skin of 1.5 x 4.9 cm incision. SURGEON: Mateo Wilkes DO LEAD SUPPLY WORKER: YOSHI Lugo. SPECIMEN: Left hand mass. BLOOD LOSS: Less than 5 mL. FLUIDS: Per anesthesia. POSTOPERATIVE CONDITION: Stable. ANESTHESIA: IV sedation by the PEDIATRIC CLINICAL DIETICIAN. INDICATION FOR PROCEDURE: The patient is a 81-year-old male who has a mass on his left hand, has been growing bigger, flaky, looked like maybe a basilar probably squamous cell, needs to get this removed. FINDINGS: The patient had a mass on his left hand, removed elliptical incision measured 1.5 x 4.9 cm, sent to pathology marked with a short superior stitch and long lateral stitch. PROCEDURE NOTE: After informed consent was obtained, the patient was brought to the operating room, placed on the operating table in supine position, sterilely prepped and draped in normal fashion. Local lidocaine was used to infiltrate the skin around this mass, jhoana an elliptical incision, infiltrated this area, measured it, it was a 1.5 x 4.9 cm and made an incision with #15 blade, carried down through the skin and subcutaneous tissue, then deepened down to subcutaneous tissue with Bovie electrocautery, going directly under the skin and removing this mass marking with a suture short superior, long lateral, and passed this off the table. Minimal bleeding controlled with Bovie electrocautery. There was some bleeding from the skin edges as well. This was controlled with direct pressure. Closed this with 3-0 nylon, 3 vertical mattress sutures and then 4, 4-0 nylon simple interrupted suture. Area was cleaned and dried, and a wrap dressing placed. The patient tolerated the procedure. Sponge, instrument and needle count correct at the end of the case. He was transferred to recovery room in stable condition. Job ID: [id number] DocumentID: [id number] Dictated Date: 05/23/2021 13:13:44 Cable Splicer Helper Date: 05/23/2021 23:00:01 Dictated By: MATEO WILKES DO [facility]
== END 2021-05-23 14:35 | disposition home or self-care (01) ==
LOC: SDC 10:04
PROVIDERS: ATTEND Surgery
DX: C44.629 Squamous cell carcinoma of skin of left upper limb, including shoulder (principal); I10 Essential (primary) hypertension; E11.40 Type 2 diabetes mellitus with diabetic neuropathy, unspecified; Z79.899 Other long term (current) drug therapy; Z79.82 Long term (current) use of aspirin; Z79.84 Long term (current) use of oral hypoglycemic drugs; Z87.891 Personal history of nicotine dependence
CPT/HCPCS: 82947; 87081

== ENCOUNTER 2021-08-14 10:01 | Emergency (ER) | payer MEDICARE, OTHER ==
[~2021-08-14] VITALS: Ht 177 cm; Wt 73.6 kg
[~2021-08-14 10:01] MED LIST changes: +ACHD5005 PO; -BETH25TA PO; +BETH25TA2 PO
[2021-08-14] MEDS ORDERED: EPINEPHrine 0.1 MG/ML 10 ML (HOSPIRA) SYR IJ ONE (10:06)
[2021-08-14] MEDS ORDERED: AMIODARONE (BOLUS) 150 MG/3 ML IV ONE (10:06)
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
== END 2021-08-14 13:02 | disposition expired ==
LOC: EDUNIT# 10:04 → ER 10:05
DX: I46.9 Cardiac arrest, cause unspecified (principal); I49.01 Ventricular fibrillation; I10 Essential (primary) hypertension; E11.9 Type 2 diabetes mellitus without complications; Z79.84 Long term (current) use of oral hypoglycemic drugs
CPT/HCPCS: 36680